=== PATIENT | male | born 1965 | race Caucasian/White ===

== ENCOUNTER 2023-06-16 21:41 | Inpatient (IN) ==
[2023-06-16 22:18] LABS: Hematocrit (blood only) 37.4 % (42.0-52.0); Hemoglobin 12.8 g/dl (14.0-18.0); Mean Corpuscular Hemoglobin 27.9 pg (25.0-34.0); Mean Corpuscular Hgb Conc 34.2 g/dL (32.0-36.0); Mean Corpuscular Volume 81.7 fL (80.0-100.0); Mean Platelet Volume 9.8 fL (9.4-12.4); Platelet Count 328 K/uL (130-400); RDW Coefficient of Variation 13.5 % (11.5-14.5); RDW Standard Deviation 39.8 fL (36.4-46.3); Red Blood Count 4.58 M/uL (4.70-6.10); White Blood Count 27.73 K/ul (4.8-10.8)
[2023-06-16 22:53] LABS: Albumin Globulin Ratio 0.7 (0.9-2); Albumin Level 2.9 gm/dl (3.4-5.0); BUN Creatinine Ratio 25.9 (10-20); Bilirubin,Total 0.6 mg/dl (0.2-1.0); Creatinine Clr Calc Pharmacy 72.1 ml/min; Est GFR (African American) 87.2 ml/min; Est GFR (Non-African American) 75.3 ml/min; Globulin 4.1 gm/dl (2.5-4.0); Potassium 4.8 mmol/L (3.5-5.1)
[2023-06-16 22:56] LABS: Basophils # (auto) 0.06 K/uL (0.00-0.20); Basophils % (auto) 0.2 %; Eosinophils % (auto) 0.4 %; Immature Granulocytes % (auto) 0.7 %; Lymphocytes # (auto) 1.03 K/uL (1.20-3.40); Lymphocytes % (auto) 3.7 %; Monocytes # (auto) 1.27 K/uL (0.11-0.59); Monocytes % (auto) 4.6 %; Neutrophils # (auto) 25.07 K/uL (1.40-6.50); Neutrophils % (auto) 90.4 %
[2023-06-16] MEDS: NovoLIN-R INSULIN PER UNIT CHARGE IV STA (23:31)
[2023-06-16] MEDS: cefTRIAXone SODIUM 2,000 MG/50 ML BAG IV STA (23:32)
[2023-06-16] MEDS: OPTIRAY 320 100ml IV ONE (23:38)
[2023-06-16 23:56] LABS: C Reactive Protein 35.45 mg/dl (0-0.5)
--- NOTE | 2023-06-17 01:27 | Emergency Department Note ---
History of Present Illness General Chief complaint: Infection, Wound Stated complaint: RT FOOT INFECTION/WOUND Time Seen by Provider: 06/16/23 23:00 History of Present Illness This 58-year-old male who is noncompliant with his diabetes medications presents to the ER he was initially seen at [place]. Patient was suppose to be admitted to [facility] but came here instead. Patient states his right foot is severely infected. He has osteomyelitis. Patient denies fever, chills, new trauma to the area. Patient states he has neuropathy and cannot really feel his feet. The right great toe is black and the leg is swollen up to the calf. There is extensive erythema. No history of DVT. He does not smoke. No other concerns per patient. Home Medications Medication Instructions Recorded Confirmed Type cholecalciferol (vitamin D3) 25 25 mcg PO DAILY 06/17/23 06/17/23 History mcg (1,000 unit) capsule (Vitamin D3) cyanocobalamin (vitamin B-12) 500 500 mcg PO DAILY 06/17/23 06/17/23 History mcg tablet (Vitamin B-12) [id number] 1 tab PO DAILY 06/17/23 06/17/23 History tablet (Multivitamin 50 Plus tablet) Allergies Allergy/AdvReac Type Severity Reaction Status Date / Time No Known Allergies Allergy Verified 06/17/23 00:56 Past Med/Surg History Social History Smoking Status: Never smoker Preferred Language: Haitian Feels Safe at Home: Yes Review of Systems A total of 10 systems reviewed and were otherwise negative Physical Exam Vital Signs Vital Signs - 24 hr 06/16/23 21:46 06/16/23 22:47 06/16/23 23:46 Temperature 37.7 C H Temperature Source Oral Pulse Rate 97 H 96 H Pulse Rate [Finger] 100 H Pulse Rate from SpO2 Sensor Pulse Rhythm [Finger] Respiratory Rate 18 18 Respiratory Effort / Characteristics Non-Labored Spontaneous Respiratory Depth Normal Normal Respiratory Pattern Regular Blood Pressure 165/76 H Blood Pressure [Right Arm] 160/86 H Blood Pressure Mean 105 Blood Pressure Mean [Right Arm] 110 Pulse Oximetry 99 96 Oxygen Delivery Method Room Air Room Air Sepsis Recent Fever Within 48 Hours No Sepsis New/Unexplained Change in Mental Status No Sepsis Action Taken by Nursing No Action Required 06/17/23 00:00 06/17/23 03:00 06/17/23 03:00 Temperature Temperature Source Pulse Rate 97 H 89 Pulse Rate [Finger] 88 Pulse Rate from SpO2 Sensor 97 H Pulse Rhythm [Finger] Regular Respiratory Rate 17 16 Respiratory Effort / Characteristics Non-Labored Spontaneous Respiratory Depth Normal Respiratory Pattern Regular Blood Pressure 160/86 H Blood Pressure [Right Arm] 140/83 Blood Pressure Mean 110 Blood Pressure Mean [Right Arm] 102 Pulse Oximetry 96 93 Oxygen Delivery Method Room Air Room Air Sepsis Recent Fever Within 48 Hours Sepsis New/Unexplained Change in Mental Status Sepsis Action Taken by Nursing VITALS: Vitals are noted on the nurse's note and reviewed by myself. Vital signs stable. GENERAL: White male with present, in no acute distress, nondiaphoretic, well-developed well-nourished. SKIN: Capillary reflex less than 2 seconds. HEENT: Normocephalic. PERRLA. EOMI. Nares patent. Mucous membranes moist. Neck is supple without nuchal rigidity. HEART: Regular rate and rhythm LUNGS: Clear to auscultation bilaterally without wheezes, rales or rhonchi. No retractions or accessory muscle use. ABDOMEN: Positive bowel sounds x 4. Normal tympanic percussion. Soft, nontender, without masses or organomegaly. Reyes sign negative. No guarding or rebound tenderness. no CVA tenderness MUSCULOSKELETAL: No gross musculoskeletal defects. Right foot great toe black malodorous draining with erythema and edema extending up to the calf concerning for osteomyelitis and infection. No crepitus. Wound culture taken and sent. Pedal pulses +2 equal present bilaterally. NEURO: Patient was alert and oriented to person place and time. No focal neurological deficits. Course Administered Medications Discontinued Medications Diphtheria/Pertussis/Tetanus Vacc (Diphther/Tetan/Pertus Vaccine (Tdap, Adol/Adult) 0.5ml) 0.5 ml IM .ONCE ONE Stop: 06/17/23 01:28 Last Admin: 06/17/23 03:19 Dose: 0.5 ml Documented By: ALESIA Ceftriaxone Sodium (Rocephin) 2,000 mg in 50 mls @ 100 mls/hr IV NOW STA Stop: 06/16/23 23:40 Last Infusion: 06/17/23 00:21 Dose: Infused Documented By: Admin: 06/16/23 23:32 Dose: 100 mls/hr Documented By: ALESIA Insulin Human Regular (Novolin-R Insulin Per Unit Charge) 10 units IV NOW STA Stop: 06/16/23 23:17 Last Admin: 06/16/23 23:31 Dose: 10 units Documented By: ALESIA Co-signed By: MERNA Ioversol (Optiray 320 100ml) 92 ml IV ONCE ONE Stop: 06/16/23 23:39 Last Admin: 06/16/23 23:38 Dose: 92 ml Documented By: KOREY Medical Decision Making Medical Records Attestation: I reviewed the patient's medical records. Home Medications Current Medication List: was personally reviewed by me Laboratory Data Attestation: I reviewed the patient's lab results. 06/16/23 22:03 06/16/23 22:03 Lab Results 06/16/23 06/17/23 Range/Units 22:03 01:30 WBC 27.73 H (4.8-10.8) K/ul RBC 4.58 L (4.70-6.10) M/uL Hgb 12.8 L (14.0-18.0) g/dl Hct 37.4 L (42.0-52.0) % MCV 81.7 (80.0-100.0) fL MCH 27.9 (25.0-34.0) pg MCHC 34.2 (32.0-36.0) g/dL RDW Std Deviation 39.8 (36.4-46.3) fL RDW Coeff of Dafne 13.5 (11.5-14.5) % Plt Count 328 (130-400) K/uL MPV 9.8 (9.4-12.4) fL Immature Gran % (Auto) 0.7 % Neut % (Auto) 90.4 % Lymph % (Auto) 3.7 % [place] % (Auto) 4.6 % Eos % (Auto) 0.4 % Baso % (Auto) 0.2 % Neut # (Auto) 25.07 H (1.40-6.50) K/uL Lymph # (Auto) 1.03 L (1.20-3.40) K/uL [place] # (Auto) 1.27 H (0.11-0.59) K/uL Eos # (Auto) 0.10 (0.00-0.50) K/uL Baso # (Auto) 0.06 (0.00-0.20) K/uL Immature Gran # (Auto) 0.20 (0.01-0.20) K/uL ESR 126 H (0-20) mm/hr Sodium 127 L (136-145) mmol/L Potassium 4.8 (3.5-5.1) mmol/L Chloride 94 L (98-107) mmol/L Carbon Dioxide 21 (21-32) mmol/L Anion Gap 12 H (3-11) BUN 28 H (6-23) mg/dl Creatinine 1.08 (0.6-1.4) mg/dl Est Cr Clr Drug Dosing 72.1 ml/min Est GFR ( Amer) 87.2 ml/min Est GFR (Non-Af Amer) 75.3 ml/min BUN/Creatinine Ratio 25.9 H (10-20) Glucose 381 H* (70-99(Fasting)) mg/dl POC Glucose 179 H (70-99) mg/dl Calcium 8.0 L (8.6-10.3) mg/dl Total Bilirubin 0.6 (0.2-1.0) mg/dl AST 32 (13-39) U/L ALT 23 (7-52) U/L Alkaline Phosphatase 139 H (34-104) U/L Total Creatine Kinase 38 (30-223) U/L C-Reactive Protein 35.45 H (0-0.5) mg/dl Total Protein 7.0 (6.0-8.3) gm/dl Albumin 2.9 L (3.4-5.0) gm/dl Globulin 4.1 H (2.5-4.0) gm/dl Albumin/Globulin Ratio 0.7 L (0.9-2) Imaging Data Attestation: I personally reviewed and interpreted this imaging study as follows: Radiologist's Impression: Foot CT 06/16/23 23:11 Exam(s): CT RIGHT FOOT With Contrast IV Amt: OPTIRAY 320 92ML EXAM: CT Right Lower Extremity With Intravenous Contrast, Foot CLINICAL HISTORY: Reason for exam: ? OM. TECHNIQUE: Axial computed tomography images of the right foot with intravenous contrast. CTDI is 24.91 mGy and DLP is 384.65 mGy-cm. Automated exposure control was utilized for the study. A dose lowering technique was utilized adhering to the principles of ALARA. CONTRAST: Patient received OPTIRAY 320 92ML of IV contrast COMPARISON: No relevant prior studies available. FINDINGS: Diffuse subcutaneous edema surrounding the ankle and foot. Cutaneous defect/ulceration and gas partially surrounding the distal aspect of the first digit clean the underlying the nail bed. Associated cortical destruction and erosion of the distal phalanx with intraosseous gas. Small amount of subcutaneous gas in the plantar aspect of the foot underlying the mid diaphysis of the first metatarsal without involvement of the first metatarsal. No other erosions or cortical destruction. No discrete enhancing soft tissue mass to suggest a phlegmon or abscess. No acute fracture or dislocation. No radiopaque foreign body. IMPRESSION: Diffuse subcutaneous edema and swelling compatible with cellulitis. Focal cutaneous erosions with underlying osseous destruction involving the distal phalanx of the first digit consistent with osteomyelitis. Small amount of gas in the subcutaneous fat overlying the mid first metatarsal without bony destruction. Electronically signed by: Pb Trent M.D. 06/17/23 01:51 AM MDM Narrative Prior records reviewed and summarized as above. Triage Nursing notes reviewed. Additional history obtained from family. The patient's history was concerning for swelling and redness of the skin. Differential diagnosis: Etiologies such as osteomyelitis, cellulitis, abscess, MRSA infection, DVT, necrotizing fasciitis, dermatitis, drug eruption, as well as others were entertained.. Physical examination: Exam and history seem consistent with osteomyelitis ER treatment provided: Patient received vancomycin just prior to arrival from [place]. Patient was given Rocephin here. IV fluids and insulin was given for hyperglycemia On reassessment the patient felt better. Diagnostics interpreted by me: The labs Independently Interpreted by myself revealed hyperglycemia, leukocytosis, elevated inflammatory markers Wound culture pending Blood cultures pending Imaging studies: Imaging as above Consultation: A consultation was placed with the hospitalist. The case was discussed and diagnostics were reviewed. The patient was evaluated in the ER for further treatment. This appears to be osteomyelitis of the right foot. Patient was started on broad-spectrum antibiotics. He received vancomycin just prior to arrival from [place]. He is given Rocephin here. Wound culture was taken and sent. Blood cultures are pending. Patient be admitted to the medical service. By the evaluation outlined above emergent etiologies such as abscess, necrotizing fasciitis, DVT, as well as others were deemed relatively unlikely. The pt informed about the findings as listed above. All questions were answered and pleased with the treatment. The chart was completed utilizing [employer] Speech voice recognition software. Grammatical errors, random word insertions, pronoun errors, and incomplete sentences are an occassional consequence of this system due to software limitations, ambient noise, and hardware issues. Any formal questions or concerns about the content, text, or information contained within the body of this dictation should be directly addressed to the physician corporate law assistant for clarification. Impression & Plan Acute osteomyelitis of right foot, Diabetes mellitus with hyperglycemia Discharge Plan Visit Data Chief Complaint: Infection, Wound Stated Complaint: RT FOOT INFECTION/WOUND ED Provider: Sudha Garzon ED Midlevel Provider: Josi Blake Discharge Problem: Acute osteomyelitis of right foot, Diabetes mellitus with hyperglycemia Patient Disposition: Admitted As Inpatient Condition: Fair Forms Stand Alone Forms: [facility] [employer] Prescriptions Prescriptions: No Action cyanocobalamin (vitamin B-12) [Vitamin B-12] 500 mcg Tablet 500 mcg PO DAILY cholecalciferol (vitamin D3) [Vitamin D3] 25 mcg (1,000 unit) Capsule 25 mcg PO DAILY Multivitamin 50 Plus Tablet 1 tab PO DAILY Referrals Referrals: PCP,NO [Primary Care Provider] -
--- NOTE | 2023-06-17 01:52 | CT Scan Report ---
Exam(s): CT RIGHT FOOT With Contrast IV Amt: OPTIRAY 320 92ML EXAM: CT Right Lower Extremity With Intravenous Contrast, Foot CLINICAL HISTORY: Reason for exam: ? OM. TECHNIQUE: Axial computed tomography images of the right foot with intravenous contrast. CTDI is 24.91 mGy and DLP is 384.65 mGy-cm. Automated exposure control was utilized for the study. A dose lowering technique was utilized adhering to the principles of ALARA. CONTRAST: Patient received OPTIRAY 320 92ML of IV contrast COMPARISON: No relevant prior studies available. FINDINGS: Diffuse subcutaneous edema surrounding the ankle and foot. Cutaneous defect/ulceration and gas partially surrounding the distal aspect of the first digit clean the underlying the nail bed. Associated cortical destruction and erosion of the distal phalanx with intraosseous gas. Small amount of subcutaneous gas in the plantar aspect of the foot underlying the mid diaphysis of the first metatarsal without involvement of the first metatarsal. No other erosions or cortical destruction. No discrete enhancing soft tissue mass to suggest a phlegmon or abscess. No acute fracture or dislocation. No radiopaque foreign body. IMPRESSION: Diffuse subcutaneous edema and swelling compatible with cellulitis. Focal cutaneous erosions with underlying osseous destruction involving the distal phalanx of the first digit consistent with osteomyelitis. Small amount of gas in the subcutaneous fat overlying the mid first metatarsal without bony destruction. Electronically signed by: Pb Trent M.D. 06/17/23 01:51 AM
[2023-06-17] MEDS: DIPHTHER/TETAN/PERTUS Vaccine (Tdap, Adol/Adult) 0.5mL IM ONE (03:19)
--- NOTE | 2023-06-17 03:58 | Ultrasound Report ---
Exam(s): US VENOUS RIGHT LOWER EXTREMITY EXAM: US Duplex Right Lower Extremity Veins CLINICAL HISTORY: Reason for exam: ? dvt. TECHNIQUE: Real-time duplex ultrasound scan of the right lower extremity veins integrating B-mode two-dimensional vascular structure, Doppler spectral analysis, color flow Doppler imaging and compression. COMPARISON: No relevant prior studies available. FINDINGS: Deep veins: Unremarkable. No DVT in the visualized common femoral, femoral, proximal deep femoral or popliteal veins. The veins demonstrate normal color flow, are normally compressible, with normal phasic flow and/or augmentation response. Superficial veins: Unremarkable. No thrombus in the visualized great saphenous vein. Soft tissues: Right calf edema. No popliteal cyst. Right groin lymph node 3.7 x 1.2 x 4.5 cm. Right popliteal fossa lymph node 1.1 x 0.7 x 1. 3 cm. IMPRESSION: No evidence of deep venous thrombosis. Right groin and popliteal lymph nodes. Electronically signed by: Pb Trent M.D. 06/17/23 03:57 AM
--- NOTE | 2023-06-17 04:06 | History & Physical Report ---
Date of Service June 17, 2023 Assessment & Plan (1) Acute osteomyelitis of right foot: Plan: 58-year-old male with past med history significant for diabetes used to be on metformin but stopped taking it 2 years ago and not seen a doctor for some time went to [place] ER because of infection going on the right big toe for last 2 months. Says it initially started as a blister and he used [id number] antibiotic creams but is not getting better so went to the [place] ER and was there for 24 hours. Looks like he was given IV antibiotics and there was a plan to transfer him to [facility] but he came here. Says he has neuropathy in legs and does not feel any pain. Is ambulating okay. Denies any fevers. Denies any headache. No dizziness. No runny nose or sore throat. Vision is okay. No cough. States appetite is okay. No chest pain or shortness of breath. No nausea. No abdominal pain. Normal bowel and bladder movements. Denies blood in the stools. Hemodynamically stable. Acute osteomyelitis of the right big toe Blackish discoloration of right big toe Empiric IV Dapto and Zosyn Keep n.p.o. IV fluids Ortho consult Diabetes Currently not taking medications Will place him on sliding scale Follow HbA1c levels Hyponatremia Sodium 127 Some component of pseudohyponatremia from hyperglycemia Will follow repeat labs DVT prophylaxis SCDs for now Disposition Medical floor Full code History of Present Illness Chief Complaint: Right big toe infection and osteomyelitis Primary Care Provider: NO PCP 58-year-old male with past med history significant for diabetes used to be on metformin but stopped taking it 2 years ago and not seen a doctor for some time went to [place] ER because of infection going on the right big toe for last 2 months. Says it initially started as a blister and he used [id number] antibiotic creams but is not getting better so went to the [place] ER and was there for 24 hours. Looks like he was given IV antibiotics and there was a plan to transfer him to [facility] but he came here. Says he has neuropathy in legs and does not feel any pain. Is ambulating okay. Denies any fevers. Denies any headache. No dizziness. No runny nose or sore throat. Vision is okay. No cough. States appetite is okay. No chest pain or shortness of breath. No nausea. No abdominal pain. Normal bowel and bladder movements. Denies blood in the stools. Hemodynamically stable. Past medical history. As mentioned above Past surgical history. Surgery for a bursitis in his right elbow. Social history. Denies smoking. Alcohol social drinking. No drug use. Family history. Father had diabetes and heart disease. Mother had diabetes. Allergies Allergy/AdvReac Type Severity Reaction Status Date / Time No Known Allergies Allergy Verified 06/17/23 00:56 Home Medications Medication Instructions Recorded Confirmed Type cholecalciferol (vitamin D3) 25 25 mcg PO DAILY 06/17/23 06/17/23 History mcg (1,000 unit) capsule (Vitamin D3) cyanocobalamin (vitamin B-12) 500 500 mcg PO DAILY 06/17/23 06/17/23 History mcg tablet (Vitamin B-12) [id number]-[id number]-[id number] 1 tab PO DAILY 06/17/23 06/17/23 History tablet (Multivitamin 50 Plus tablet) Past Med/Surg History Social History Smoking Status: Never smoker Hx Alcohol Use: Yes Hx Substance Use: No Preferred Language: Indonesian Communication Ability: Effective Stunner Animal Required: No Beliefs That Will Affect Care: None Current Living Situation: Spouse Current Living Situation Comment: home with Other Information That Helps Us Care for You: No Feels Safe at Home: Yes Safety Concerns: Feels Safe At This Time Assistive Devices: Denture - Upper and Glasses Review of Systems Review of Systems: All systems reviewed & are unremarkable except as noted in HPI & below Physical Exam Physical Exam: General- Not in distress Head- atraumatic Eyes- PERRL,. ENT- oropharynx clear Neck- supple, no JVD. Lungs- clear to auscultation no wheezing or crackles. Heart- regular rhythm; no murmur, no gallop. Abdomen- normal bowel sounds, soft, nontender, no distension. Extremities- no pretibial edema, Right big toe blackish discoloration Neuro- alert, oriented PERRL, no facial palsy; no dysarthria; moves extremities Results & Data Results & Data Vital Signs (Past 12 Hours) Vital Signs Temp Pulse Pulse Resp BP BP Pulse Ox 06/17/23 03:00 88 16 140/83 93 06/17/23 03:00 89 06/17/23 00:00 97 H 17 160/86 H 96 06/16/23 23:46 100 H 18 160/86 H 96 06/16/23 22:47 96 H 06/16/23 21:46 37.7 C H 97 H 18 165/76 H 99 O2 Del Method 06/17/23 03:00 Room Air 06/17/23 03:00 06/17/23 00:00 Room Air 06/16/23 23:46 Room Air 06/16/23 22:47 06/16/23 21:46 Room Air Diagnostic Findings Laboratory Results WBC 27.73 K/ul (4.8-10.8) H 06/16/23 22:03 RBC 4.58 M/uL (4.70-6.10) L 06/16/23 22:03 Hgb 12.8 g/dl (14.0-18.0) L 06/16/23 22:03 Hct 37.4 % (42.0-52.0) L 06/16/23 22:03 MCV 81.7 fL (80.0-100.0) 06/16/23 22:03 MCH 27.9 pg (25.0-34.0) 06/16/23 22:03 MCHC 34.2 g/dL (32.0-36.0) 06/16/23 22:03 RDW Std Deviation 39.8 fL (36.4-46.3) 06/16/23 22:03 RDW Coeff of Dafne 13.5 % (11.5-14.5) 06/16/23 22:03 Plt Count 328 K/uL (130-400) 06/16/23 22:03 MPV 9.8 fL (9.4-12.4) 06/16/23 22:03 Immature Gran % (Auto) 0.7 % 06/16/23 22:03 Neut % (Auto) 90.4 % 06/16/23 22:03 Lymph % (Auto) 3.7 % 06/16/23 22:03 [place] % (Auto) 4.6 % 06/16/23 22:03 Eos % (Auto) 0.4 % 06/16/23 22:03 Baso % (Auto) 0.2 % 06/16/23 22:03 Neut # (Auto) 25.07 K/uL (1.40-6.50) H 06/16/23 22:03 Lymph # (Auto) 1.03 K/uL (1.20-3.40) L 06/16/23 22:03 [place] # (Auto) 1.27 K/uL (0.11-0.59) H 06/16/23 22:03 Eos # (Auto) 0.10 K/uL (0.00-0.50) 06/16/23 22:03 Baso # (Auto) 0.06 K/uL (0.00-0.20) 06/16/23 22:03 Immature Gran # (Auto) 0.20 K/uL (0.01-0.20) 06/16/23 22:03 ESR 126 mm/hr (0-20) H 06/16/23 22:03 Sodium 127 mmol/L (136-145) L 06/16/23 22:03 Potassium 4.8 mmol/L (3.5-5.1) 06/16/23 22:03 Chloride 94 mmol/L (98-107) L 06/16/23 22:03 Carbon Dioxide 21 mmol/L (21-32) 06/16/23 22:03 Anion Gap 12 (3-11) H 06/16/23 22:03 BUN 28 mg/dl (6-23) H 06/16/23 22:03 Creatinine 1.08 mg/dl (0.6-1.4) 06/16/23 22:03 Est Cr Clr Drug Dosing 72.1 ml/min 06/16/23 22:03 Est GFR ( Amer) 87.2 ml/min 06/16/23 22:03 Est GFR (Non-Af Amer) 75.3 ml/min 06/16/23 22:03 BUN/Creatinine Ratio 25.9 (10-20) H 06/16/23 22:03 Glucose 381 mg/dl (70-99(Fasting)) H* 06/16/23 22:03 POC Glucose 179 mg/dl (70-99) H 06/17/23 01:30 Calcium 8.0 mg/dl (8.6-10.3) L 06/16/23 22:03 Total Bilirubin 0.6 mg/dl (0.2-1.0) 06/16/23 22:03 AST 32 U/L (13-39) 06/16/23 22:03 ALT 23 U/L (7-52) 06/16/23 22:03 Alkaline Phosphatase 139 U/L (34-104) H 06/16/23 22:03 Total Creatine Kinase 38 U/L (30-223) 06/16/23 22:03 C-Reactive Protein 35.45 mg/dl (0-0.5) H 06/16/23 22:03 Total Protein 7.0 gm/dl (6.0-8.3) 06/16/23 22:03 Albumin 2.9 gm/dl (3.4-5.0) L 06/16/23 22:03 Globulin 4.1 gm/dl (2.5-4.0) H 06/16/23 22:03 Albumin/Globulin Ratio 0.7 (0.9-2) L 06/16/23 22:[address] 06/16/23 23:11 Exam(s): CT RIGHT FOOT With Contrast IV Amt: OPTIRAY 320 92ML EXAM: CT Right Lower Extremity With Intravenous Contrast, Foot CLINICAL HISTORY: Reason for exam: ? OM. TECHNIQUE: Axial computed tomography images of the right foot with intravenous contrast. CTDI is 24.91 mGy and DLP is 384.65 mGy-cm. Automated exposure control was utilized for the study. A dose lowering technique was utilized adhering to the principles of ALARA. CONTRAST: Patient received OPTIRAY 320 92ML of IV contrast COMPARISON: No relevant prior studies available. FINDINGS: Diffuse subcutaneous edema surrounding the ankle and foot. Cutaneous defect/ulceration and gas partially surrounding the distal aspect of the first digit clean the underlying the nail bed. Associated cortical destruction and erosion of the distal phalanx with intraosseous gas. Small amount of subcutaneous gas in the plantar aspect of the foot underlying the mid diaphysis of the first metatarsal without involvement of the first metatarsal. No other erosions or cortical destruction. No discrete enhancing soft tissue mass to suggest a phlegmon or abscess. No acute fracture or dislocation. No radiopaque foreign body. IMPRESSION: Diffuse subcutaneous edema and swelling compatible with cellulitis. Focal cutaneous erosions with underlying osseous destruction involving the distal phalanx of the first digit consistent with osteomyelitis. Small amount of gas in the subcutaneous fat overlying the mid first metatarsal without bony destruction. Electronically signed by: Pb Trent M.D. 06/17/23 01:51 AM Venous Doppler Study 06/17/23 00:00 Exam(s): US VENOUS RIGHT LOWER EXTREMITY EXAM: US Duplex Right Lower Extremity Veins CLINICAL HISTORY: Reason for exam: ? dvt. TECHNIQUE: Real-time duplex ultrasound scan of the right lower extremity veins integrating B-mode two-dimensional vascular structure, Doppler spectral analysis, color flow Doppler imaging and compression. COMPARISON: No relevant prior studies available. FINDINGS: Deep veins: Unremarkable. No DVT in the visualized common femoral, femoral, proximal deep femoral or popliteal veins. The veins demonstrate normal color flow, are normally compressible, with normal phasic flow and/or augmentation response. Superficial veins: Unremarkable. No thrombus in the visualized great saphenous vein. Soft tissues: Right calf edema. No popliteal cyst. Right groin lymph node 3.7 x 1.2 x 4.5 cm. Right popliteal fossa lymph node 1.1 x 0.7 x 1. 3 cm. IMPRESSION: No evidence of deep venous thrombosis. Right groin and popliteal lymph nodes. Electronically signed by: Pb Trent M.D. 06/17/23 03:57 AM Code Status & VTE Plan VTE Prophylaxis Plan VTE Prophylaxis will be ordered: Yes
[2023-06-17] MEDS ORDERED: CARBOHYDRATES FOR HYPOGLYCEMIA PO PRN (05:23)
[2023-06-17] MEDS ORDERED: GLUCOSE 40% GEL 15 GM TUBE PO PRN (05:23)
[2023-06-17] MEDS ORDERED: DEXTROSE 50% 50 ML SYRINGE IV PRN (05:23)
[2023-06-17] MEDS ORDERED: POLYETHYLENE (MIRALAX) 17 GM PACK PO PRN (05:23)
[2023-06-17] MEDS ORDERED: GLUCOSE 10 TAB/TUBE PO PRN (05:23)
[2023-06-17] MEDS ORDERED: GLUCAGON FOR INJ 1 MG VIAL SQ PRN (05:23)
[2023-06-17] MEDS: SODIUM CHLORIDE 0.9% 1,000 ML IV SCH (05:56)
[2023-06-17] MEDS: DAPTOmycin 275 MG in SYRINGE 0 ML IV SCH (06:02)
[2023-06-17] MEDS: PIPER/TAZO 4.5g in D5W MINI-B 100 ML IV ONE (06:15)
[2023-06-17] MEDS: INSULIN ASPART PER UNIT CHARGE SC SCH ×2 (06:15→12:14)
[2023-06-17] MEDS: ZOLPIDEM TARTRATE 5 MG TAB PO STA (06:17)
[2023-06-17 07:22] LABS: Hematocrit (blood only) 33.6 % (42.0-52.0); Hemoglobin 11.3 g/dl (14.0-18.0); Mean Corpuscular Hemoglobin 27.8 pg (25.0-34.0); Mean Corpuscular Hgb Conc 33.6 g/dL (32.0-36.0); Mean Corpuscular Volume 82.8 fL (80.0-100.0); Mean Platelet Volume 9.4 fL (9.4-12.4); Platelet Count 309 K/uL (130-400); RDW Coefficient of Variation 13.2 % (11.5-14.5); RDW Standard Deviation 40.4 fL (36.4-46.3); Red Blood Count 4.06 M/uL (4.70-6.10); White Blood Count 26.28 K/ul (4.8-10.8)
[2023-06-17 07:39] LABS: BUN Creatinine Ratio 25.2 (10-20); Calcium 7.5 mg/dl (8.6-10.3); Creatinine Clr Calc Pharmacy 74.7 ml/min; Est GFR (African American) 91.7 ml/min; Est GFR (Non-African American) 79.1 ml/min; Magnesium 1.9 mg/dl (1.7-2.4); Potassium 4.3 mmol/L (3.5-5.1)
[2023-06-17 07:50] LABS: Basophils # (auto) 0.03 K/uL (0.00-0.20); Basophils % (auto) 0.1 %; Dohle Bodies 1+; Eosinophils # (auto) 0.09 K/uL (0.00-0.50); Eosinophils % (auto) 0.3 %; Immature Granulocytes # (auto) 0.21 K/uL (0.01-0.20); Immature Granulocytes % (auto) 0.8 %; Lymphocytes % (auto) 2.7 %; Monocytes % (auto) 5.3 %; Neutrophils # (auto) 23.85 K/uL (1.40-6.50); Neutrophils % (auto) 90.8 %
[2023-06-17 07:56] LABS: Estimated Average Glucose 358 mg/dl; Hemoglobin A1C 14.1 % (4.5-5.6)
[2023-06-17] MEDS: CEROVITE ADV FORMULA TAB PO SCH (08:01)
[2023-06-17] MEDS: CHOLECALCIFEROL 25 MCG (1000 UNITS) TAB PO SCH (08:01)
[2023-06-17] MEDS: CYANOCOBALAMIN (B-12) 500 MCG TABLET PO SCH (08:01)
--- NOTE | 2023-06-17 09:24 | Orthopedic Consultation ---
Date of Consultation June 17, 2023 Assessment & Plan (1) Acute osteomyelitis of right foot: Plan Pt seen in conjunction with Dr Marquis. Due to extend of infection patient will require right below knee amputation. This was thoroughly discussed with the patient including his surgical options and risk and benefits and patient is agreeable to proceed with RT BKA with Dr Marquis tomorrow. This will be added on tomorrow. Written consent was obtained and placed in patient chart. X-rays were ordered. Pt can eat today, NPO tonight at midnight. Hold any anticoagulants. Continue SCDs. Continue antibiotics per primary. Pt will need IV ancef preop in OR. Orders for ancef preop, NPO at midnight, 1 gram TXA preop and type and screen were placed. History of Present Illness Reason for Consultation: Right great toe infection Attending Physician: Erik Calloway MD History of Present Illness Jerry is a 58-year-old male type II diabetic, uncontrolled who presented to [facility] yesterday for concerns of right great toe infection. He was seen in [facility] and they were concerned about osteomyelitis of his right great toe. He was supposed to be transferred to [place] but came to [facility]. He says that this has been ongoing since November. Started out as a blister and he was using [id number] antibiotic creams. He says that it really started to get bad with black discoloration over the past 2 months. He did not seek any treatment prior to going to [facility]. He was started on IV Dapto and Zosyn at [facility]. He says that he does not have any pain and was ambulating with no issues. He used to be on metformin for his diabetes but stopped taking it 2 years ago. He denies any other medical issues that he knows about. No known allergies. He is not on any blood thinners. He last ate yesterday evening and has been NPO. Denies any tobacco use. No h/o MRSA. Allergies Allergy/AdvReac Type Severity Reaction Status Date / Time No Known Allergies Allergy Verified 06/17/23 00:56 Home Medications Medication Instructions Recorded Confirmed Type cholecalciferol (vitamin D3) 25 25 mcg PO DAILY 06/17/23 06/17/23 History mcg (1,000 unit) capsule (Vitamin D3) cyanocobalamin (vitamin B-12) 500 500 mcg PO DAILY 06/17/23 06/17/23 History mcg tablet (Vitamin B-12) [id number] 1 tab PO DAILY 06/17/23 06/17/23 History tablet (Multivitamin 50 Plus tablet) Patient History Social History Smoking Status: Never smoker Hx Alcohol Use: Yes Hx Substance Use: No Preferred Language: Samoan Communication Ability: Effective Bacteriologist Medical Required: No Beliefs That Will Affect Care: None Current Living Situation: Spouse Current Living Situation Comment: home with Other Information That Helps Us Care for You: No Feels Safe at Home: Yes Safety Concerns: Feels Safe At This Time Assistive Devices: Denture - Upper and Glasses Review of Systems Review of Systems: Denies fevers, chills. Endorses fatigue. Physical Exam Physical Exam: Patient was seen and examined bedside. He is lying comfortably in his bed. No acute distress, calm and cooperative during exam. He is afebrile. His right foot is edematous. There is erythema cellulitis. His right great toe is blackened discoloration. He is able to feel sensation in his remaining foot and toes. He does have a 2+ dorsal pedal pulse present. He is able to freely move all of his toes and ankle. He has no pain. He has a plantar wound distal to his right toe MTP that extends beyond his mid foot with surrounding erythema. Results & Data Vital Signs (Past 12 Hours) Vital Signs Temp Pulse Pulse Resp BP BP Pulse Ox 06/17/23 07:11 36.9 C 87 18 127/72 96 06/17/23 05:16 36.8 C 91 H 18 159/84 H 98 06/17/23 03:00 88 16 140/83 93 06/17/23 03:00 89 06/17/23 00:00 97 H 17 160/86 H 96 06/16/23 23:46 100 H 18 160/86 H 96 06/16/23 22:47 96 H 06/16/23 21:46 37.7 C H 97 H 18 165/76 H 99 O2 Del Method 06/17/23 07:11 Room Air 06/17/23 05:16 Room Air 06/17/23 03:00 Room Air 06/17/23 03:00 06/17/23 00:00 Room Air 06/16/23 23:46 Room Air 06/16/23 22:47 06/16/23 21:46 Room Air Laboratory Results 06/17/23 06/17/23 06/17/23 Range/Units 07:01 05:41 01:30 WBC 26.28 H (4.8-10.8) K/ul RBC 4.06 L (4.70-6.10) M/uL Hgb 11.3 L (14.0-18.0) g/dl Hct 33.6 L (42.0-52.0) % MCV 82.8 (80.0-100.0) fL MCH 27.8 (25.0-34.0) pg MCHC 33.6 (32.0-36.0) g/dL RDW Std Deviation 40.4 (36.4-46.3) fL RDW Coeff of Dafne 13.2 (11.5-14.5) % Plt Count 309 (130-400) K/uL MPV 9.4 (9.4-12.4) fL Immature Gran % (Auto) 0.8 % Neut % (Auto) 90.8 % Lymph % (Auto) 2.7 % [place] % (Auto) 5.3 % Eos % (Auto) 0.3 % Baso % (Auto) 0.1 % Neut # (Auto) 23.85 H (1.40-6.50) K/uL Lymph # (Auto) 0.70 L (1.20-3.40) K/uL [place] # (Auto) 1.40 H (0.11-0.59) K/uL Eos # (Auto) 0.09 (0.00-0.50) K/uL Baso # (Auto) 0.03 (0.00-0.20) K/uL Immature Gran # (Auto) 0.21 H (0.01-0.20) K/uL Dohle Bodies 1+ ESR (0-20) mm/hr Sodium 130 L (136-145) mmol/L Potassium 4.3 (3.5-5.1) mmol/L Chloride 98 (98-107) mmol/L Carbon Dioxide 24 (21-32) mmol/L Anion Gap 8 (3-11) BUN 26 H (6-23) mg/dl Creatinine 1.03 (0.6-1.4) mg/dl Est Cr Clr Drug Dosing 74.7 ml/min Est GFR ( Amer) 91.7 ml/min Est GFR (Non-Af Amer) 79.1 ml/min BUN/Creatinine Ratio 25.2 H (10-20) Glucose 256 H (70-99(Fasting)) mg/dl POC Glucose 249 H 179 H (70-99) mg/dl Estimat Average Glucose 358 mg/dl Hemoglobin A1c 14.1 H (4.5-5.6) % Calcium 7.5 L (8.6-10.3) mg/dl Magnesium 1.9 (1.7-2.4) mg/dl Total Bilirubin (0.2-1.0) mg/dl AST (13-39) U/L ALT (7-52) U/L Alkaline Phosphatase (34-104) U/L Total Creatine Kinase (30-223) U/L C-Reactive Protein (0-0.5) mg/dl Total Protein (6.0-8.3) gm/dl Albumin (3.4-5.0) gm/dl Globulin (2.5-4.0) gm/dl Albumin/Globulin Ratio (0.9-2) 06/15/ Range/Units 22:03 WBC 27.73 H (4.8-10.8) K/ul RBC 4.58 L (4.70-6.10) M/uL Hgb 12.8 L (14.0-18.0) g/dl Hct 37.4 L (42.0-52.0) % MCV 81.7 (80.0-100.0) fL MCH 27.9 (25.0-34.0) pg MCHC 34.2 (32.0-36.0) g/dL RDW Std Deviation 39.8 (36.4-46.3) fL RDW Coeff of Dafne 13.5 (11.5-14.5) % Plt Count 328 (130-400) K/uL MPV 9.8 (9.4-12.4) fL Immature Gran % (Auto) 0.7 % Neut % (Auto) 90.4 % Lymph % (Auto) 3.7 % [place] % (Auto) 4.6 % Eos % (Auto) 0.4 % Baso % (Auto) 0.2 % Neut # (Auto) 25.07 H (1.40-6.50) K/uL Lymph # (Auto) 1.03 L (1.20-3.40) K/uL [place] # (Auto) 1.27 H (0.11-0.59) K/uL Eos # (Auto) 0.10 (0.00-0.50) K/uL Baso # (Auto) 0.06 (0.00-0.20) K/uL Immature Gran # (Auto) 0.20 (0.01-0.20) K/uL Dohle Bodies ESR 126 H (0-20) mm/hr Sodium 127 L (136-145) mmol/L Potassium 4.8 (3.5-5.1) mmol/L Chloride 94 L (98-107) mmol/L Carbon Dioxide 21 (21-32) mmol/L Anion Gap 12 H (3-11) BUN 28 H (6-23) mg/dl Creatinine 1.08 (0.6-1.4) mg/dl Est Cr Clr Drug Dosing 72.1 ml/min Est GFR ( Amer) 87.2 ml/min Est GFR (Non-Af Amer) 75.3 ml/min BUN/Creatinine Ratio 25.9 H (10-20) Glucose 381 H* (70-99(Fasting)) mg/dl POC Glucose (70-99) mg/dl Estimat Average Glucose mg/dl Hemoglobin A1c (4.5-5.6) % Calcium 8.0 L (8.6-10.3) mg/dl Magnesium (1.7-2.4) mg/dl Total Bilirubin 0.6 (0.2-1.0) mg/dl AST 32 (13-39) U/L ALT 23 (7-52) U/L Alkaline Phosphatase 139 H (34-104) U/L Total Creatine Kinase 38 (30-223) U/L C-Reactive Protein 35.45 H (0-0.5) mg/dl Total Protein 7.0 (6.0-8.3) gm/dl Albumin 2.9 L (3.4-5.0) gm/dl Globulin 4.1 H (2.5-4.0) gm/dl Albumin/Globulin Ratio 0.7 L (0.9-2) Diagnostic Findings Foot CT 06/16/23 23:11 Exam(s): CT RIGHT FOOT With Contrast IV Amt: OPTIRAY 320 92ML EXAM: CT Right Lower Extremity With Intravenous Contrast, Foot CLINICAL HISTORY: Reason for exam: ? OM. TECHNIQUE: Axial computed tomography images of the right foot with intravenous contrast. CTDI is 24.91 mGy and DLP is 384.65 mGy-cm. Automated exposure control was utilized for the study. A dose lowering technique was utilized adhering to the principles of ALARA. CONTRAST: Patient received OPTIRAY 320 92ML of IV contrast COMPARISON: No relevant prior studies available. FINDINGS: Diffuse subcutaneous edema surrounding the ankle and foot. Cutaneous defect/ulceration and gas partially surrounding the distal aspect of the first digit clean the underlying the nail bed. Associated cortical destruction and erosion of the distal phalanx with intraosseous gas. Small amount of subcutaneous gas in the plantar aspect of the foot underlying the mid diaphysis of the first metatarsal without involvement of the first metatarsal. No other erosions or cortical destruction. No discrete enhancing soft tissue mass to suggest a phlegmon or abscess. No acute fracture or dislocation. No radiopaque foreign body. IMPRESSION: Diffuse subcutaneous edema and swelling compatible with cellulitis. Focal cutaneous erosions with underlying osseous destruction involving the distal phalanx of the first digit consistent with osteomyelitis. Small amount of gas in the subcutaneous fat overlying the mid first metatarsal without bony destruction. Electronically signed by: Pb Trent M.D. 06/17/23 01:51 AM Venous Doppler Study 06/17/23 00:00 Exam(s): US VENOUS RIGHT LOWER EXTREMITY EXAM: US Duplex Right Lower Extremity Veins CLINICAL HISTORY: Reason for exam: ? dvt. TECHNIQUE: Real-time duplex ultrasound scan of the right lower extremity veins integrating B-mode two-dimensional vascular structure, Doppler spectral analysis, color flow Doppler imaging and compression. COMPARISON: No relevant prior studies available. FINDINGS: Deep veins: Unremarkable. No DVT in the visualized common femoral, femoral, proximal deep femoral or popliteal veins. The veins demonstrate normal color flow, are normally compressible, with normal phasic flow and/or augmentation response. Superficial veins: Unremarkable. No thrombus in the visualized great saphenous vein. Soft tissues: Right calf edema. No popliteal cyst. Right groin lymph node 3.7 x 1.2 x 4.5 cm. Right popliteal fossa lymph node 1.1 x 0.7 x 1. 3 cm. IMPRESSION: No evidence of deep venous thrombosis. Right groin and popliteal lymph nodes. Electronically signed by: Pb Trent M.D. 06/17/23 03:57 AM
[2023-06-17] MEDS ORDERED: Nursing to Pharmacy Communication SCH (10:00)
--- NOTE | 2023-06-17 11:30 | XRay Report ---
XR foot RT min 3V routine HISTORY: 58 years-old Male infection acute right foot pain with reported soft tissue infection COMPARISON: CT 06/16/2023 TECHNIQUE: 3 views of the right foot FINDINGS: Mild diffuse soft tissue swelling. Type II accessory navicular. Multifocal osteoarthritis, mostly mil d to moderate however severe within the second metatarsal phalangeal joint. Subcutaneous and deep tis dora edema of the first digit with first distal phalangeal osteonecrosis/osteomyelitis redemonstrated. No acute fracture or dislocation. IMPRESSION: Osteomyelitis/osteonecrosis of the first distal phalanx redemonstrated with first digit/volar forefoo t soft tissue gas which may be secondary to direct communication with an open wound versus gas gangre ne/necrotizing fasciitis. ACT 112: Negative or not required by law. The above report was generated using voice recognition software. It may contain grammatical, syntax o r spelling errors. Electronically signed by: Ranjeet Epperson M.D. 06/17/2023 11:28 AM
[2023-06-17] MEDS: PIPERACILLIN/TAZOBACTAM 4.5 GM in DEXTROSE 5% MINI-B 100 ML IV SCH (11:42)
--- NOTE | 2023-06-17 14:23 | Hospitalist Progress Note ---
Date of Service June 17, 2023 Assessment & Plan (1) Acute osteomyelitis of right foot: (2) Diabetes mellitus with hyperglycemia: Plan 58-year-old male with past med history significant for diabetes used to be on metformin but stopped taking it 2 years ago and not seen a doctor for some time went to [facility] because of infection going on the right big toe for last 2 months. He was initially in the [facility] ED; was being planned to transfer to [facility] Patient decided to come to [facility] for further evaluation Acute osteomyelitis of the right big toe Dry gangrene Diabetic foot wound Blood culture positive gram-positive cocci in chains Patient presented with worsening infection of right great toe for the last 2 months Blood culture in [facility] ED positive for gram-positive cocci in [facility] Foot CT shows diffuse subcutaneous edema and swelling compatible cellulitis, osseous destruction involving the distal phalanx of first digit. Leukocytosis present ESR and CRP significantly elevated Patient planned for below-knee amputation. Continue with Zosyn and daptomycin; repeat blood culture is pending. Will follow-up on final culture and sensitivity of blood culture from OSH Will obtain echocardiogram given gram-positive bacteremia Obtain EKG Type II diabetes Currently not taking medications Will place him on sliding scale HbA1c of 14.1% Discussed about restarting insulin at discharge; patient is agreeable. Will need follow-up with PCP to manage diabetes Hyponatremia Sodium 127 on admission; improved to 130 Continue IV fluids BMP daily DVT prophylaxis SCDs for now Disposition Medical floor Full code Please note the above document was generated using voice recognition software. It may contain grammatical, syntax or spelling errors. Any formal questions or concerns about the content, text or information contained within the body of this dictation should be directly addressed to the provider for clarification Admission and Anticipated Discharge Date Admission Date: June 17, 2023 Subjective Patient seen and examined at bedside. He is lying on the bed comfortably. Not in distress. He discussed with orthopedics regarding surgery tomorrow. He is agreeable to it. Reports generalized fatigue and tiredness. Review of Systems Review of Systems: All systems reviewed & are unremarkable except as noted in Subjective Physical Exam Physical Exam: Constitutional: WD/WN, vitals as above, NAD, sitting up in bed, pleasant, conversing easily Respiratory: normal respiratory effort, lungs clear to auscultation, no wheeze, rales, rhonchi. Normal insp/exp effort, no accessory muscle use Cardiovascular: RRR, no murmur, no edema Vessels: no JVD or carotid bruit Chest: normal inspection of chest Abdomen: normal bowel sounds, soft, nontender, no hepatosplenomegaly Musculoskeletal: Right foot; great toe is necrotic with dry gangrene with large area extending from the base of the MTP joint. Wound in the plantar midfoot as well. No purulent discharge. Skin: no rashes, warm and dry normal turgor Neurologic: PERRL, EOMI, accommodation nl, no face palsy, no dysarthria CN's II- XI intact bilaterally and moves all extremities Psychiatric: A+Ox3, euthymic affect Results & Data Results & Data Vital Signs (Past 12 Hours) Vital Signs Temp Pulse Pulse Resp BP Pulse Ox O2 Del Method 06/17/23 07:11 36.9 C 87 18 127/72 96 Room Air 06/17/23 05:16 36.8 C 91 H 18 159/84 H 98 Room Air 06/17/23 03:00 88 16 140/83 93 Room Air 06/17/23 03:00 89
[2023-06-17] MEDS: PROMETHAZINE HCL 12.5 MG in SODIUM CHLORIDE 0.9% 50 ML IV STA (14:50)
[2023-06-18] MEDS: ZOLPIDEM TARTRATE 5 MG TAB PO PRN (01:34)
[2023-06-18] MEDS ORDERED: ceFAZolin 2000MG 2,000 MG/15 ML SYR IV ONE (06:00)
[2023-06-18] MEDS: INSULIN ASPART PER UNIT CHARGE SC SCH ×2 (06:05→20:35)
[2023-06-18 07:27] LABS: Basophils # (auto) 0.04 K/uL (0.00-0.20); Basophils % (auto) 0.2 %; Eosinophils # (auto) 0.36 K/uL (0.00-0.50); Eosinophils % (auto) 1.8 %; Immature Granulocytes # (auto) 0.21 K/uL (0.01-0.20); Immature Granulocytes % (auto) 1.1 %; Lymphocytes # (auto) 0.94 K/uL (1.20-3.40); Lymphocytes % (auto) 4.8 %; Mean Corpuscular Hemoglobin 27.9 pg (25.0-34.0); Mean Corpuscular Hgb Conc 33.3 g/dL (32.0-36.0); Mean Corpuscular Volume 83.8 fL (80.0-100.0); Mean Platelet Volume 9.7 fL (9.4-12.4); Monocytes # (auto) 1.23 K/uL (0.11-0.59); Monocytes % (auto) 6.2 %; Neutrophils # (auto) 16.94 K/uL (1.40-6.50); Neutrophils % (auto) 85.9 %; Platelet Count 316 K/uL (130-400); RDW Coefficient of Variation 13.5 % (11.5-14.5); RDW Standard Deviation 41.9 fL (36.4-46.3); Red Blood Count 3.94 M/uL (4.70-6.10); White Blood Count 19.72 K/ul (4.8-10.8)
[2023-06-18 07:43] LABS: BUN Creatinine Ratio 24.5 (10-20); Calcium 7.3 mg/dl (8.6-10.3); Creatinine Clr Calc Pharmacy 72.6 ml/min; Est GFR (African American) 88.6 ml/min; Est GFR (Non-African American) 76.4 ml/min; Potassium 4.1 mmol/L (3.5-5.1)
--- NOTE | 2023-06-18 10:03 | Orthopedic Progress Note ---
Date of Service June 18, 2023 Assessment & Plan (1) Acute osteomyelitis of right foot: Plan Due to extend of infection patient will require right below knee amputation. This was thoroughly discussed with the patient 06/16 including his surgical options and risk and benefits and patient is agreeable to proceed with RT BKA with Dr Marquis. This will be done later today. Written consent was obtained 06/16 and placed in patient chart. X-rays were ordered and showed osteomyelitis in great toe/ forefoot with gas. Type and screen was done yesterday. Pt has been NPO. Hold any anticoagulants. Continue SCDs. Continue antibiotics and fluids per primary. Orders for ancef and TXA placed. Pt has no further questions or concerns this morning. Plan to proceed with surgrey today as planned. Admission and Anticipated Discharge Date Admission Date: June 17, 2023 Subjective Pt says he is doing well. He is waiting for surgery later today. Has no issues, questions or concerns at this time Review of Systems Review of Systems: Denies fevers, chills. Endorses fatigue. Physical Exam Physical Exam: Patient was seen bedside. He is lying comfortably in his bed. No acute distress, calm and cooperative during exam. He is afebrile. Exam 06/16: His right foot is edematous. There is erythema cellulitis. His right great toe is blackened discoloration. He is able to feel sensation in his remaining foot and toes. He does have a 2+ dorsal pedal pulse present. He is able to freely move all of his toes and ankle. He has no pain. He has a plantar wound distal to his right toe MTP that extends beyond his mid foot with surrounding erythema. Results & Data Vital Signs (Past 12 Hours) Vital Signs Temp Pulse Resp BP Pulse Ox O2 Del Method 06/18/23 07:34 36.8 C 84 18 138/84 96 Room Air Laboratory Results 06/18/23 06/18/23 06/17/23 Range/Units 06:42 05:44 20:46 WBC 19.72 H (4.8-10.8) K/ul RBC 3.94 L (4.70-6.10) M/uL Hgb 11.0 L (14.0-18.0) g/dl Hct 33.0 L (42.0-52.0) % MCV 83.8 (80.0-100.0) fL MCH 27.9 (25.0-34.0) pg MCHC 33.3 (32.0-36.0) g/dL RDW Std Deviation 41.9 (36.4-46.3) fL RDW Coeff of Dafne 13.5 (11.5-14.5) % Plt Count 316 (130-400) K/uL MPV 9.7 (9.4-12.4) fL Immature Gran % (Auto) 1.1 % Neut % (Auto) 85.9 % Lymph % (Auto) 4.8 % [place] % (Auto) 6.2 % Eos % (Auto) 1.8 % Baso % (Auto) 0.2 % Neut # (Auto) 16.94 H (1.40-6.50) K/uL Lymph # (Auto) 0.94 L (1.20-3.40) K/uL [place] # (Auto) 1.23 H (0.11-0.59) K/uL Eos # (Auto) 0.36 (0.00-0.50) K/uL Baso # (Auto) 0.04 (0.00-0.20) K/uL Immature Gran # (Auto) 0.21 H (0.01-0.20) K/uL Sodium 133 L (136-145) mmol/L Potassium 4.1 (3.5-5.1) mmol/L Chloride 104 (98-107) mmol/L Carbon Dioxide 21 (21-32) mmol/L Anion Gap 8 (3-11) BUN 26 H (6-23) mg/dl Creatinine 1.06 (0.6-1.4) mg/dl Est Cr Clr Drug Dosing 72.6 ml/min Est GFR ( Amer) 88.6 ml/min Est GFR (Non-Af Amer) 76.4 ml/min BUN/Creatinine Ratio 24.5 H (10-20) Glucose 240 H (70-99(Fasting)) mg/dl POC Glucose 194 H 168 H (70-99) mg/dl Calcium 7.3 L (8.6-10.3) mg/dl Blood Type Antibody Screen 06/17/23 06/17/23 06/17/23 Range/Units 16:47 11:46 10:31 WBC (4.8-10.8) K/ul RBC (4.70-6.10) M/uL Hgb (14.0-18.0) g/dl Hct (42.0-52.0) % MCV (80.0-100.0) fL MCH (25.0-34.0) pg MCHC (32.0-36.0) g/dL RDW Std Deviation (36.4-46.3) fL RDW Coeff of Dafne (11.5-14.5) % Plt Count (130-400) K/uL MPV (9.4-12.4) fL Immature Gran % (Auto) % Neut % (Auto) % Lymph % (Auto) % [place] % (Auto) % Eos % (Auto) % Baso % (Auto) % Neut # (Auto) (1.40-6.50) K/uL Lymph # (Auto) (1.20-3.40) K/uL [place] # (Auto) (0.11-0.59) K/uL Eos # (Auto) (0.00-0.50) K/uL Baso # (Auto) (0.00-0.20) K/uL Immature Gran # (Auto) (0.01-0.20) K/uL Sodium (136-145) mmol/L Potassium (3.5-5.1) mmol/L Chloride (98-107) mmol/L Carbon Dioxide (21-32) mmol/L Anion Gap (3-11) BUN (6-23) mg/dl Creatinine (0.6-1.4) mg/dl Est Cr Clr Drug Dosing ml/min Est GFR ( Amer) ml/min Est GFR (Non-Af Amer) ml/min BUN/Creatinine Ratio (10-20) Glucose (70-99(Fasting)) mg/dl POC Glucose 187 H 198 H (70-99) mg/dl Calcium (8.6-10.3) mg/dl Blood Type A Positive Antibody Screen NEGATIVE
--- NOTE | 2023-06-18 13:14 | History & Physical Bridge Note ---
Date of Service June 18, 2023 History & Physical Bridge Note I have examined the patient, reviewed the History & Physical and in the interval since the performance of the History & Physical I have noted the following changes of clinical significance: no changes noted
[2023-06-18] MEDS ORDERED: LIDOCAINE 2% 2 ML VIAL/AMP(20MG/ML) INFIL ONE (13:17)
[2023-06-18] MEDS ORDERED: DEXAMETHASONE SOD INJ 4 MG/ML VIAL ONE (13:17)
[2023-06-18] MEDS ORDERED: fentaNYL citrate PF 100 MCG/2 ML VIAL ONE (13:17)
[2023-06-18] MEDS ORDERED: ONDANSETRON INJ 2 MG/ML 2 ML VIAL ONE (13:17)
[2023-06-18] MEDS ORDERED: MIDAZOLAM HCL 1 MG/ML 2ML VIAL ONE (13:17)
[2023-06-18] MEDS ORDERED: PROPOFOL IV EMULSION 10 MG/ML 20 ML VIAL IV ONE (13:17)
--- NOTE | 2023-06-18 13:17 | Anesthesiology Consultation ---
Date of Service June 18, 2023 Assessment & Plan (1) Encounter for pre-operative examination: Chart Review Chart Review: Acceptable Risk for Surgery History Surgery Operation Date: 06/18/23 13:40 Proposed Procedures p Right Below Knee Amputation - Inocente Marquis MD Height/Weight Height: 5 ft 8 in Weight: 69.7 kg Allergies Allergy/AdvReac Type Severity Reaction Status Date / Time metformin AdvReac Mild Confusion Verified 06/17/23 16:33 Medications Home Medications Medication Instructions Recorded Confirmed Last Taken cholecalciferol (vitamin D3) 25 25 mcg PO DAILY 06/17/23 06/17/23 06/15/23 mcg (1,000 unit) capsule (Vitamin D3) cyanocobalamin (vitamin B-12) 500 500 mcg PO DAILY 06/17/23 06/17/23 06/15/23 mcg tablet (Vitamin B-12) [id number]-[id number]-[id number] 1 tab PO DAILY 06/17/23 06/17/23 06/15/23 tablet (Multivitamin 50 Plus tablet) Active Medications Generic Name Dose Route Start Last Admin Trade Name Blanca PRN Reason Stop Dose Admin Cyanocobalamin 500 mcg 06/17/23 09:00 06/18/23 08:25 Cyanocobalamin (B-12) 500 Mcg Tablet PO 07/17/23 08:59 500 mcg DAILY LOTUS Administration Sodium Chloride 1,000 mls @ 125 mls/hr 06/17/23 05:23 06/18/23 06:02 Nss IV 07/17/23 05:22 125 mls/hr .Q8H LOTUS Administration Daptomycin 275 mg/ Syringe 5.5 mls @ 2.75 mls/min 06/17/23 06:00 06/18/23 06:03 IV 06/24/23 05:59 2.75 mls/min Q24H LOTUS Administration Protocol Piperacillin Sod/Tazobactam 100 mls @ 25 mls/hr 06/17/23 12:00 06/18/23 11:26 Sod 4.5 gm/ Dextrose IV 06/24/23 11:59 25 mls/hr Q8H LOTUS Administration Protocol Lactated Ringer's 1,000 mls @ 15 mls/hr 06/18/23 13:30 06/18/23 13:23 Lr IV 07/18/23 13:29 15 mls/hr .Q24H LOTUS Administration Insulin Aspart 0 units 06/18/23 06:00 06/18/23 11:31 Insulin Aspart Per Unit Charge SC 07/18/23 05:59 3 units Q6H LOTUS Administration Multivitamins/Minerals 1 tab 06/17/23 09:00 06/18/23 08:25 Cerovite Adv Formula Tab PO 07/17/23 08:59 1 tab DAILY LOTUS Administration Vitamin D 25 mcg 06/17/23 09:00 06/18/23 08:25 Cholecalciferol 25 Mcg (1000 Units) Tab PO 07/17/23 08:59 25 mcg DAILY LOTUS Administration Zolpidem Tartrate 5 mg 06/18/23 00:58 06/18/23 01:34 Zolpidem Tartrate 5 Mg Tab PO 07/18/23 00:57 5 mg HS PRN Administration Sleep NPO Date Last Intake of Fluids: 06/18/23 Time Last Intake of Fluids: 08:45 Past Medical History Medical History (Updated 06/18/23 @ 13:24 by Jerry Gibson MD) Diabetes mellitus with hyperglycemia no treatment past couple years Acute osteomyelitis of right foot Past Surgical History Surgical History (Updated 06/18/23 @ 13:24 by Jerry Gibson MD) Hx of elbow surgery Social History Smoking Status: Never smoker Hx Alcohol Use: Yes alcohol intake frequency: holidays/special occasions only Hx Substance Use: No substance use type: does not use Physical Exam Vital Signs Last Vital Signs Temp 36.8 C 06/18/23 07:34 Pulse 84 06/18/23 07:34 Resp 18 06/18/23 07:34 BP 138/84 06/18/23 07:34 Pulse Ox 96 06/18/23 07:34 O2 Del Method Room Air 06/18/23 07:34 Testing Laboratory Results 06/18/23 06:42 06/18/23 06:42 Hemoglobin A1c 14.1 % (4.5-5.6) H 06/17/23 07:01 Blood Type A Positive 06/17/23 10:31 Antibody Screen NEGATIVE 06/17/23 10:31 06/16/23 23:07 Gram Stain - Final Toe Wound Culture - Preliminary Staphylococcus species 06/16/23 23:25 Aerobic Blood Culture - Preliminary Blood No growth in Aerobic bottle after 24 hours. Anaerobic Blood Culture - Preliminary No growth in Anaerobic bottle after 24 hours. 06/16/23 23:12 Aerobic Blood Culture - Preliminary Blood No growth in Aerobic bottle after 24 hours. Anaerobic Blood Culture - Preliminary No growth in Anaerobic bottle after 24 hours. 06/18/23 06/18/23 11:27 05:44 POC Glucose 206 H 194 H Electrocardiogram Date: 06/17/23 Findings: + NSR @ (81) and + [place] (possible inferior)
[2023-06-18] MEDS: LACTATED RINGER'S 1,000 ML IV SCH (13:23)
[2023-06-18] MEDS ORDERED: ONDANSETRON INJ 2 MG/ML 2 ML VIAL IV PRN (13:29)
[2023-06-18] MEDS ORDERED: ATROPINE SULFATE 0.1 MG/ML 10ML SYR IV PRN (13:29)
[2023-06-18] MEDS ORDERED: HYDROmorphone INJ 1 MG/ML SYRINGE IV PRN (13:29)
[2023-06-18] MEDS ORDERED: DROPERIDOL 5 MG/2 ML VIAL IV PRN (13:29)
[2023-06-18] MEDS: ceFAZolin 2000MG 2,000 MG/15 ML SYR IV SCH (13:55)
[2023-06-18] MEDS: TRANEXAMIC ACID / 0.7% NACL 1,000 MG/100 ML BAG IV ONE (13:55)
[2023-06-18] MEDS: TRANEXAMIC ACID / 0.7% NACL 1000MG/100ML BAG IV ONE (13:55)
[2023-06-18] MEDS ORDERED: ePHEDrine sulfate 50 MG/5 ML SYR ONE (14:10)
--- NOTE | 2023-06-18 14:50 | Electrocardiogram Report ---
Test Reason : Blood Pressure : / mmHG Vent. Rate : 081 BPM Atrial Rate : 081 BPM P-R Int : 156 ms QRS Dur : 074 ms QT Int : 376 ms P-R-T Axes : 081 -54 021 degrees QTc Int : 436 ms Normal sinus rhythm Left axis deviation Inferior infarct , age undetermined Abnormal ECG No previous ECGs available Confirmed by Jonathan Faye ([id number]) on 06/18/2023 2:50:11 PM Referred By: REFERRED SELF Confirmed By:Jonathan Faye
--- NOTE | 2023-06-18 15:20 | Hospitalist Progress Note ---
Date of Service June 18, 2023 Assessment & Plan (1) Acute osteomyelitis of right foot: (2) Diabetes mellitus with hyperglycemia: Plan 58-year-old male with past med history significant for diabetes used to be on metformin but stopped taking it 2 years ago and not seen a doctor for some time went to [facility] because of infection going on the right big toe for last 2 months. He was initially in the [facility] ED; was being planned to transfer to [facility]. Patient decided to come to [facility] for further evaluation Acute osteomyelitis of the right big toe Dry gangrene Diabetic foot wound Blood culture positive gram-positive cocci in chains Patient presented with worsening infection of right great toe for the last 2 months Blood culture in [facility] ED positive for gram-positive cocci in [facility] Foot CT shows diffuse subcutaneous edema and swelling compatible cellulitis, osseous destruction involving the distal phalanx of first digit. Leukocytosis present ESR and CRP significantly elevated Patient planned for below-knee amputation. Continue with Zosyn and daptomycin; repeat blood culture here is negative so far will follow-up on final culture and sensitivity of blood culture from OSH Follow-up on echocardiogram Type II diabetes Currently not taking medications Will place him on sliding scale HbA1c of 14.1% Discussed about restarting insulin at discharge; patient is agreeable. Will need follow-up with PCP to manage diabetes Hyponatremia Sodium 127 on admission; improved to 133 Continue IV fluids BMP daily DVT prophylaxis SCDs for now Disposition Medical floor Full code Please note the above document was generated using voice recognition software. It may contain grammatical, syntax or spelling errors. Any formal questions or concerns about the content, text or information contained within the body of this dictation should be directly addressed to the provider for clarification Admission and Anticipated Discharge Date Admission Date: June 17, 2023 Subjective Patient seen and examined at bedside. He is comfortable; not in distress. He will undergo surgery today. Review of Systems Review of Systems: All systems reviewed & are unremarkable except as noted in Subjective Physical Exam Physical Exam: Constitutional: WD/WN, vitals as above, NAD, sitting up in bed, pleasant, conversing easily Respiratory: normal respiratory effort, lungs clear to auscultation, no wheeze, rales, rhonchi. Normal insp/exp effort, no accessory muscle use Cardiovascular: RRR, no murmur, no edema Vessels: no JVD or carotid bruit Chest: normal inspection of chest Abdomen: normal bowel sounds, soft, nontender, no hepatosplenomegaly Musculoskeletal: Right foot; great toe is necrotic with dry gangrene with large area extending from the base of the MTP joint. Wound in the plantar midfoot as well. No purulent discharge. Skin: no rashes, warm and dry normal turgor Neurologic: PERRL, EOMI, accommodation nl, no face palsy, no dysarthria CN's II- XI intact bilaterally and moves all extremities Psychiatric: A+Ox3, euthymic affect Results & Data Results & Data Vital Signs (Past 12 Hours) Vital Signs Temp Pulse Pulse Resp BP BP Pulse Ox 06/18/23 13:12 36.9 C 82 20 148/96 H 97 06/18/23 07:34 36.8 C 84 18 138/84 96 O2 Del Method 06/18/23 13:12 Room Air 06/18/23 07:34 Room Air
--- NOTE | 2023-06-18 16:09 | Fluoroscopy Report ---
FL knee RT 1 or 2V CLINICAL HISTORY: RIGHT BELOW KNEE AMPUTATION COMPARISON STUDY: None. FLUOROSCOPY TIME: 18 sex FLUOROSCOPY IMAGES: 2 Ka,r: 0.8 mGy FINDINGS: Fluoroscopic images demonstrate a pnsrz-ofb-xzxy amputation. IMPRESSION: Fluoroscopic assistance as above. ACT 112: Negative or not required by law. Electronically signed by: Des Negron M.D. 06/18/2023 4:08 PM
[2023-06-18] MEDS: BUPIVACAINE 0.25% PF 30 ML VIAL ONE (16:33)
[2023-06-18] MEDS: LIDOCAINE 1% LOCAL 20 ML VIAL ONE (16:33)
--- NOTE | 2023-06-18 16:39 | Operative Report ---
Post Operative Report Pre & Post Diagnosis Operation Date: 06/18/23 13:40 Pre-Op Diagnosis: Right Big Toe Infection, Osteomyelitis Post-Op Diagnosis: Necrosis of the right great toe, midfoot abscess, midfoot necrosis. I identified the patient and participated in the time-out.: Yes Procedure Operation Date: 06/18/23 13:40 Actual Procedures p Right Below Knee Amputation(Right) - Inocente Marquis MD Surgeon Inocente Marquis MD Wall Worker ARIADNE [place] no resident or fellow available Estimated Blood Loss 10 Findings Consistent with Post-Op Diagnosis Specimens Culture of the right foot for Gram stain aerobic and anaerobic. Gross pathological specimen of the amputated right lower extremity. Drains Hemovac x 1 Anesthesia Type General Regional Complications none Disposition Accompanied Patient To Recovery: No Disposition: Recovery Room Indications Jerry is 58 years old. He has a 2-month history of right big toe necrosis progressing up into his foot along with increased redness swelling and pain. He is diabetic and has not treated his diabetes for several years. Radiographs show evidence of osteomyelitis of the distal phalanx of the big toe. Clinically however the great toe is completely ischemically necrotic. There is ischemic tissue which is 2 cm in diameter over the dorsal aspect of the first metatarsal phalangeal joint and extensive ischemic tissue over the plantar medial aspect of the foot which extends from the base of the first metatarsal phalangeal joint into the mid arch and over to the level of the second and third ray. The tr eatment options were discussed. I recommended an amputation which is almost certain to be a below-knee amputation although I would evaluate for the possibility for a more distal level. Description of Procedure Informed consent. Patient identified. He identified the operative site as the right foot. I marked with my initials. A preoperative surgical timeout was performed. A preop dose of IV antibiotics was given. He was taken to the operating room positioned supine on the OR table with a bump under the right hip. A tourniquet was applied to the right thigh. The leg was scrubbed with Betadine and prepped with Betadine paint. DVT prophylaxis intraoperatively with foot pumps. Postoperatively with early mobility and aspirin and mechanical devices. TXA given. Fluoroscopic guidance was utilized throughout the surgical procedure. Prior to the start of the procedure I evaluated the areas of necrosis. Photos were obtained for the medical record. The proximal level of the plantar necrosis which extended over to the middle of the plantar aspect of the foot was at the level of the tarsometatarsal joint. There was also an area of necrosis of the dorsal skin. Something like a transmetatarsal amputation would have resulted in a bone resection level distal to the level of viable plantar soft tissue. The dorsal soft tissue was also ischemic and inadequate for folding plantarly. The loss of the plantar tissue significantly compromised the ability to preserve his foot. Therefore a below-knee amputation would be needed. When prepping and draping the necrotic foot was excluded from the field with a impervious stockinette and Ioban. The limb was exsanguinated with the Esmarch and tourniquet plated 250 mmHg the exsanguination began at the ankle which was uninvolved with the infection and proceeded proximally. Fluoroscopic guidance was utilized to jonatan out the proposed level of resection. Based upon his height the optimal resection level was 12-1/2 cm. A 15 cm length was just too long of the distal flap which went down to the purely tendinous portion of the Achilles. I selected an amputation level approximately 13 cm distal to the medial tibial plateau. I marked this on the skin and then made the skin incision 1 cm distal to this. This curved posteriorly and proximally and then a long posterior skin flap of 15 cm in length was made. The width of the leg at the level of resection was approximately 10 cm. The skin was then 5 size followed by the fascia. I exposed the anterior compartment compartment initially and carefully resected the muscle at the level of the proposed resection. The anterior tibial neurovascular bundle was identified doubly ligated with 0 silk ties proximally and singly ligated distally and then cut. I then divided the lateral compartment musculature and prepared the fibula for osteotomy. The intermuscular septum was divided and the tibialis posterior muscle was divided. The neurovascular bundle was identified. At this time I went ahead and remeasured the tibia and then transected it. Retractors were utilized to protect the neurovascular bundle. The anterior aspe ct of the tibia was beveled and smoothed with a saw. I then cut the fibula 1- 1/2 to 2 cm proximal to the tibia. I resected portion of the distal fibula in order to improve visualization and access to the neurovascular structures. The posterior compartment neurovascular structures were identified. The nerve was cut and allowed to retract proximally after crushing it. The artery was triply ligated proximally with 0 and #1 silk. The veins were doubly ligated proximally. All were singly ligated distally and then transected. I then developed the plane superficial to the solea's down to the level of the distal resection and completed the amputation. The tourniquet was then then let down and meticulous hemostasis was performed. The major neurovascular structures were not bleeding. Stick ties with 2-0 Vicryl and electrocautery were utilized were necessary. There was good healthy tissue in the leg. There is a good muscle coverage and adequate skin for closure. Irrigation was performed. Tissue was trimmed were necessary. I folded the posterior flap anteriorly and took the gastrocnemius soleus fascia and tied it down to the anterior fascia of the tibia. I used #1 Vicryl's to do this and to close the remainder of the fascia. A large Hemovac drain was inserted deep within the wound and brought out through the distal medial stump. We then used 0 and 2-0 Vicryl's followed by 2-0 nylon to close the subcutaneous layer and skin. Local anesthetic lidocaine and Marcaine were injected into the skin area. The leg was cleaned with wet and dry sponges and a soft sterile dressing was applied Xeroform 4 x 4's ABDs followed by a posterior splint wrapping over the distal stump and proximally up to the level of the suprapatellar pouch. This was then overwrapped with an Ever wrap. The patient was then awakened from anesthesia and taken to the recovery room in stable condition. There were no complications. Counts were correct and blood loss is estimated to be 10 cc. At the conclusion of the operation spoke to patient's informed her of my findings and gave postop instructions. The amputated limb was evaluated on the back table. I made a longitudinal incision into the necrotic area plantar medially. This tissue was necrotic completely through the skin. I inserted a hemostat into the midfoot area and upon spreading a copious amount of purulence was expressed from the midfoot. A culture was obtained and sent for routine analysis Gram stain aerobic and anaerobic. The foot was sent for as a surgical specimen. I attest to the content of the Intraoperative Record and any orders documented therein. Any exceptions are noted below.
--- NOTE | 2023-06-18 16:45 | Operative Report ---
Post Operative Report Pre & Post Diagnosis Operation Date: 06/18/23 13:40 Pre-Op Diagnosis: Right Big Toe Infection, Osteomyelitis Post-Op Diagnosis: Right Big Toe Infection, Osteomyelitis I identified the patient and participated in the time-out.: Yes Procedure Operation Date: 06/18/23 13:40 Actual Procedures p Right Below Knee Amputation(Right) - Inocente Marquis MD Surgeon Inocente Marquis MD Accountant Helper ARIADNE [place] no resident or fellow available Estimated Blood Loss 10 Findings Consistent with Post-Op Diagnosis Specimens Right lower leg Description of Procedure I was present during the entire case assisting with positioning, prepping, draping, wound retraction, wound closure, dressing and splint application. No fellow present. Please see Dr. Marquis procedure note for specifics of the case. I attest to the content of the Intraoperative Record and any orders documented therein. Any exceptions are noted below.
--- NOTE | 2023-06-18 17:20 | Anesthesiology Progress Note ---
Date of Service June 18, 2023 Anesthesia Post Procedure Vital Signs Vital Signs: Temp Pulse Pulse Resp BP BP Pulse Ox 06/18/23 17:10 37.1 C 85 15 148/80 H 92 06/18/23 17:00 85 14 156/84 H 92 06/18/23 16:50 88 14 162/94 H 92 06/18/23 16:42 36.4 C L 92 H 16 139/83 94 06/18/23 13:12 36.9 C 82 20 148/96 H 97 06/18/23 07:34 36.8 C 84 18 138/84 96 06/17/23 20:58 37 C 84 18 152/72 H 98 O2 Del Method O2 Flow Rate 06/18/23 17:10 Room Air 06/18/23 17:00 Room Air 06/18/23 16:50 Room Air 06/18/23 16:42 Oxymask 2 06/18/23 13:12 Room Air 06/18/23 07:34 Room Air 06/17/23 20:58 Room Air Transfer of Care Handoff Completed per policy Notes Mental Status: alert / awake / arousable Patient Amnestic to Procedure: Yes Nausea / Vomiting: adequately controlled Pain: adequately controlled Airway Patency, RR, SpO2: stable & adequate BP & HR: stable & adequate Hydration State: stable & adequate Anesthetic Complications: no major complications apparent and Pt Satisfied with anesthetic care
[2023-06-18] MEDS: TRANEXAMIC ACID IV ONE (17:40)
[2023-06-18] MEDS: SODIUM CHLORIDE 0.9% IV ONE (17:40)
[2023-06-18] MEDS: ACETAMINOPHEN 325 MG TAB PO PRN (18:00)
[2023-06-18] MEDS: ASPIRIN 81 MG ECTAB PO SCH (20:31)
[2023-06-18] MEDS: ONDANSETRON INJ 2 MG/ML 2 ML VIAL IV PRN (21:51)
[2023-06-19] MEDS: CALCIUM CARBONATE 500 MG CHEWABLE TAB PO PRN (04:25)
[2023-06-19] MEDS: DAPTOmycin 425 MG in SYRINGE 0 ML IV SCH (05:41)
[2023-06-19 07:25] LABS: Basophils # (auto) 0.05 K/uL (0.00-0.20); Basophils % (auto) 0.3 %; Eosinophils # (auto) 0.05 K/uL (0.00-0.50); Eosinophils % (auto) 0.3 %; Hematocrit (blood only) 36.2 % (42.0-52.0); Hemoglobin 11.7 g/dl (14.0-18.0); Immature Granulocytes # (auto) 0.33 K/uL (0.01-0.20); Lymphocytes % (auto) 6.1 %; Mean Corpuscular Hemoglobin 27.5 pg (25.0-34.0); Mean Corpuscular Hgb Conc 32.3 g/dL (32.0-36.0); Mean Corpuscular Volume 85.2 fL (80.0-100.0); Mean Platelet Volume 9.2 fL (9.4-12.4); Monocytes # (auto) 0.99 K/uL (0.11-0.59); Neutrophils # (auto) 14.07 K/uL (1.40-6.50); Neutrophils % (auto) 85.3 %; Platelet Count 392 K/uL (130-400); RDW Coefficient of Variation 13.7 % (11.5-14.5); RDW Standard Deviation 43.1 fL (36.4-46.3); Red Blood Count 4.25 M/uL (4.70-6.10); White Blood Count 16.49 K/ul (4.8-10.8)
[2023-06-19 08:17] LABS: Albumin Globulin Ratio 0.7 (0.9-2); Albumin Level 2.4 gm/dl (3.4-5.0); BUN Creatinine Ratio 23.2 (10-20); Bilirubin,Total 0.3 mg/dl (0.2-1.0); Calcium 7.3 mg/dl (8.6-10.3); Creatinine Clr Calc Pharmacy 68.7 ml/min; Est GFR (African American) 82.9 ml/min; Est GFR (Non-African American) 71.5 ml/min; Globulin 3.3 gm/dl (2.5-4.0); Potassium 5.2 mmol/L (3.5-5.1); Total Protein 5.7 gm/dl (6.0-8.3)
[2023-06-19] MEDS: ALPRAZolam 0.25 MG TABLET PO STA (09:09)
[2023-06-19] MEDS: NIFEdipine EXTENDED REL 30 MG TABCR PO SCH (10:11)
--- NOTE | 2023-06-19 10:17 | Orthopedic Progress Note ---
Date of Service June 19, 2023 Assessment & Plan (1) Below-knee amputation of right lower extremity: Plan: IV antibiotics determined by medicine service Pain controlled p.o. medication Ice with easy wrap May change dressing, remove splint and pull drain tomorrow morning Weightbearing as tolerated on left lower extremity with walker assistance PT/OT DVT prophylaxis with aspirin and WILDER stockings Case management consulted Patient will most likely need discharged to a usp or rehab facility and fitted for prosthetic devices Follow-up at [facility] orthopedics in 2 weeks for suture removal With questions contact our clinic at [phone] Admission and Anticipated Discharge Date Admission Date: June 17, 2023 Subjective This 58-year-old male seen this morning day 1 status post right below the knee amputation due to right foot infection and osteomyelitis. Patient is doing very well this morning. He states his pain is easily managed with the p.o. pain medications he has been given. He states he did experience some phantom pain this morning. Overall he is in good spirits and understands that the amputation was necessary. Patient understands that he will also need to either go to a rehab or usp facility. He states that he was up ambulating on his left lower extremity with walker assistance during his PT session this morning. Currently he denies chest pain, shortness of breath, fever, chills, sweats, nausea, vomiting, diarrhea or difficulty voiding. Review of Systems Review of Systems: All systems reviewed & are unremarkable except as noted in Subjective Physical Exam Physical Exam: Right lower extremity: Dressing and splint are clean dry and intact left in place. Drain is also left in place. Patient is able to perform active straight leg raise test. He has no significant pain or weakness with applied resistance while forward flexing. He is able to detect sensation to touch over the medial and lateral aspect of his thigh. Results & Data Vital Signs (Past 12 Hours) Vital Signs Temp Pulse Resp BP Pulse Ox O2 Del Method 06/19/23 07:47 36.9 C 85 18 178/100 H 97 Room Air 06/19/23 03:09 36.6 C 87 18 151/78 H 95 Room Air 06/18/23 23:12 36.6 C 84 18 143/75 H 92 Room Air Laboratory Results Laboratory Results WBC 16.49 K/ul (4.8-10.8) H 06/19/23 06:53 RBC 4.25 M/uL (4.70-6.10) L 06/19/23 06:53 Hgb 11.7 g/dl (14.0-18.0) L 06/19/23 06:53 Hct 36.2 % (42.0-52.0) L 06/19/23 06:53 MCV 85.2 fL (80.0-100.0) 06/19/23 06:53 MCH 27.5 pg (25.0-34.0) 06/19/23 06:53 MCHC 32.3 g/dL (32.0-36.0) 06/19/23 06:53 RDW Std Deviation 43.1 fL (36.4-46.3) 06/19/23 06:53 RDW Coeff of Dafne 13.7 % (11.5-14.5) 06/19/23 06:53 Plt Count 392 K/uL (130-400) 06/19/23 06:53 MPV 9.2 fL (9.4-12.4) L 06/19/23 06:53 Immature Gran % (Auto) 2.0 % 06/19/23 06:53 Neut % (Auto) 85.3 % 06/19/23 06:53 Lymph % (Auto) 6.1 % 06/19/23 06:53 Gulf % (Auto) 6.0 % 06/19/23 06:53 Eos % (Auto) 0.3 % 06/19/23 06:53 Baso % (Auto) 0.3 % 06/19/23 06:53 Neut # (Auto) 14.07 K/uL (1.40-6.50) H 06/19/23 06:53 Lymph # (Auto) 1.00 K/uL (1.20-3.40) L 06/19/23 06:53 Gulf # (Auto) 0.99 K/uL (0.11-0.59) H 06/19/23 06:53 Eos # (Auto) 0.05 K/uL (0.00-0.50) 06/19/23 06:53 Baso # (Auto) 0.05 K/uL (0.00-0.20) 06/19/23 06:53 Immature Gran # (Auto) 0.33 K/uL (0.01-0.20) H 06/19/23 06:53 Dohle Bodies 1+ 06/17/23 07:01 ESR 126 mm/hr (0-20) H 06/16/23 22:03 Sodium 133 mmol/L (136-145) L 06/19/23 06:53 Potassium 5.2 mmol/L (3.5-5.1) H D 06/19/23 06:53 Chloride 104 mmol/L (98-107) 06/19/23 06:53 Carbon Dioxide 21 mmol/L (21-32) 06/19/23 06:53 Anion Gap 8 (3-11) 06/19/23 06:53 BUN 26 mg/dl (6-23) H 06/19/23 06:53 Creatinine 1.12 mg/dl (0.6-1.4) 06/19/23 06:53 Est Cr Clr Drug Dosing 68.7 ml/min 06/19/23 06:53 Est GFR ( Amer) 82.9 ml/min 06/19/23 06:53 Est GFR (Non-Af Amer) 71.5 ml/min 06/19/23 06:53 BUN/Creatinine Ratio 23.2 (10-20) H 06/19/23 06:53 Glucose 263 mg/dl (70-99(Fasting)) H 06/19/23 06:53 POC Glucose 252 mg/dl (70-99) H 06/19/23 07:43 Estimat Average Glucose 358 mg/dl 06/17/23 07:01 Hemoglobin A1c 14.1 % (4.5-5.6) H 06/17/23 07:01 Calcium 7.3 mg/dl (8.6-10.3) L 06/19/23 06:53 Magnesium 1.9 mg/dl (1.7-2.4) 06/17/23 07:01 Total Bilirubin 0.3 mg/dl (0.2-1.0) 06/19/23 06:53 AST 17 U/L (13-39) 06/19/23 06:53 ALT 14 U/L (7-52) 06/19/23 06:53 Alkaline Phosphatase 116 U/L (34-104) H 06/19/23 06:53 Total Creatine Kinase 38 U/L (30-223) 06/16/23 22:03 C-Reactive Protein 35.45 mg/dl (0-0.5) H 06/16/23 22:03 Total Protein 5.7 gm/dl (6.0-8.3) L 06/19/23 06:53 Albumin 2.4 gm/dl (3.4-5.0) L 06/19/23 06:53 Globulin 3.3 gm/dl (2.5-4.0) 06/19/23 06:53 Albumin/Globulin Ratio 0.7 (0.9-2) L 06/19/23 06:53 Blood Type A Positive 06/17/23 10:31 Antibody Screen NEGATIVE 06/17/23 10:[address] 06/16/23 23:11 Exam(s): CT RIGHT FOOT With Contrast IV Amt: OPTIRAY 320 92ML EXAM: CT Right Lower Extremity With Intravenous Contrast, Foot CLINICAL HISTORY: Reason for exam: ? OM. TECHNIQUE: Axial computed tomography images of the right foot with intravenous contrast. CTDI is 24.91 mGy and DLP is 384.65 mGy-cm. Automated exposure control was utilized for the study. A dose lowering technique was utilized adhering to the principles of ALARA. CONTRAST: Patient received OPTIRAY 320 92ML of IV contrast COMPARISON: No relevant prior studies available. FINDINGS: Diffuse subcutaneous edema surrounding the ankle and foot. Cutaneous defect/ulceration and gas partially surrounding the distal aspect of the first digit clean the underlying the nail bed. Associated cortical destruction and erosion of the distal phalanx with intraosseous gas. Small amount of subcutaneous gas in the plantar aspect of the foot underlying the mid diaphysis of the first metatarsal without involvement of the first metatarsal. No other erosions or cortical destruction. No discrete enhancing soft tissue mass to suggest a phlegmon or abscess. No acute fracture or dislocation. No radiopaque foreign body. IMPRESSION: Diffuse subcutaneous edema and swelling compatible with cellulitis. Focal cutaneous erosions with underlying osseous destruction involving the distal phalanx of the first digit consistent with osteomyelitis. Small amount of gas in the subcutaneous fat overlying the mid first metatarsal without bony destruction. Electronically signed by: Pb Trent M.D. 06/17/23 01:51 AM Venous Doppler Study 06/17/23 00:00 Exam(s): US VENOUS RIGHT LOWER EXTREMITY EXAM: US Duplex Right Lower Extremity Veins CLINICAL HISTORY: Reason for exam: ? dvt. TECHNIQUE: Real-time duplex ultrasound scan of the right lower extremity veins integrating B-mode two-dimensional vascular structure, Doppler spectral analysis, color flow Doppler imaging and compression. COMPARISON: No relevant prior studies available. FINDINGS: Deep veins: Unremarkable. No DVT in the visualized common femoral, femoral, proximal deep femoral or popliteal veins. The veins demonstrate normal color flow, are normally compressible, with normal phasic flow and/or augmentation response. Superficial veins: Unremarkable. No thrombus in the visualized great saphenous vein. Soft tissues: Right calf edema. No popliteal cyst. Right groin lymph node 3.7 x 1.2 x 4.5 cm. Right popliteal fossa lymph node 1.1 x 0.7 x 1. 3 cm. IMPRESSION: No evidence of deep venous thrombosis. Right groin and popliteal lymph nodes. Electronically signed by: Pb Trent M.D. 06/17/23 03:57 AM Foot X-Ray 06/17/23 09:23 XR foot RT min 3V routine HISTORY: 58 years-old Male infection acute right foot pain with reported soft tissue infection COMPARISON: CT 06/16/2023 TECHNIQUE: 3 views of the right foot FINDINGS: Mild diffuse soft tissue swelling. Type II accessory navicular. Multifocal osteoarthritis, mostly mild to moderate however severe within the second metatarsal phalangeal joint. Subcutaneous and deep tissue edema of the first digit with first distal phalangeal osteonecrosis/osteomyelitis redemonstrated. No acute fracture or dislocation. IMPRESSION: Osteomyelitis/osteonecrosis of the first distal phalanx redemonstrated with first digit/volar forefoot soft tissue gas which may be secondary to direct communication with an open wound versus gas gangrene/necrotizing fasciitis. ACT 112: Negative or not required by law. The above report was generated using voice recognition software. It may contain grammatical, syntax or spelling errors. Electronically signed by: Ranjeet Epperson M.D. 06/17/2023 11:28 AM Knee X-Ray 06/18/23 13:40 FL knee RT 1 or 2V CLINICAL HISTORY: RIGHT BELOW KNEE AMPUTATION COMPARISON STUDY: None. FLUOROSCOPY TIME: 18 sex FLUOROSCOPY IMAGES: 2 Ka,r: 0.8 mGy FINDINGS: Fluoroscopic images demonstrate a svvly-olm-panb amputation. IMPRESSION: Fluoroscopic assistance as above. ACT 112: Negative or not required by law. Electronically signed by: Des Negron M.D. 06/18/2023 4:08 PM
[2023-06-19] MEDS ORDERED: PHARMACY GLYCEMIC MGMT CONSULT PRN (15:34)
--- NOTE | 2023-06-19 15:43 | Hospitalist Progress Note ---
Date of Service June 19, 2023 Assessment & Plan (1) Acute osteomyelitis of right foot: (2) Diabetes mellitus with hyperglycemia: Plan 58-year-old male with past med history significant for diabetes used to be on metformin but stopped taking it 2 years ago and not seen a doctor for some time went to [place] ER because of infection going on the right big toe for last 2 months. He was initially in the [place] ED; was being planned to transfer to [facility]. 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 Leukocytosis present ESR and CRP elevated on admission Continue with Zosyn and daptomycin; repeat blood culture here is negative so far will follow-up on final culture and sensitivity of blood culture from OSH Aspirin twice daily for DVT prophylaxis Pain control PT OT evaluation Type II diabetes Currently not taking medications Will place him on sliding scale HbA1c of 14.1% Discussed about restarting insulin at discharge; patient is agreeable. Plan to do once a day glargine 10 units; titrate upwards after that. Pharmacy to provide coupon so that patient can receive first month free. Will need follow-up with PCP and diabetic clinic to manage diabetes Hyponatremia Sodium 127 on admission; improved to 133 Continue IV fluids BMP daily DVT prophylaxis aspirin twice daily Disposition Medical floor Full code Time spent evaluating patient, direct bedside care, chart review, placing orders, interpretation of diagnostic studies, discussion with consultants, patient, and family members, as well as other required patient management activities is 50 minutes Please note the above document was generated using voice recognition software. It may contain grammatical, syntax or spelling errors. Any formal questions or concerns about the content, text or information contained within the body of this dictation should be directly addressed to the provider for clarification Admission and Anticipated Discharge Date Admission Date: June 17, 2023 Subjective Patient seen and examined at bedside He reports pain at surgical site. No other complaints. No significant events overnight Review of Systems Review of Systems: All systems reviewed & are unremarkable except as noted in Subjective Physical Exam Physical Exam: Constitutional: WD/WN, vitals as above, NAD, sitting up in bed, pleasant, conversing easily Respiratory: normal respiratory effort, lungs clear to auscultation, no wheeze, rales, rhonchi. Normal insp/exp effort, no accessory muscle use Cardiovascular: RRR, no murmur, no edema Vessels: no JVD or carotid bruit Chest: normal inspection of chest Abdomen: normal bowel sounds, soft, nontender, no hepatosplenomegaly Musculoskeletal: Bandage in place on right foot Skin: no rashes, warm and dry normal turgor Neurologic: PERRL, EOMI, accommodation nl, no face palsy, no dysarthria CN's II- XI intact bilaterally and moves all extremities Psychiatric: A+Ox3, euthymic affect Results & Data Results & Data Vital Signs (Past 12 Hours) Vital Signs Temp Pulse Resp BP Pulse Ox O2 Del Method 06/19/23 15:28 37.0 C 88 16 156/87 H 96 Room Air 06/19/23 13:58 148/79 H 06/19/23 11:47 36.8 C 87 18 170/91 H 96 Room Air 06/19/23 10:13 149/91 H 06/19/23 07:47 36.9 C 85 18 178/100 H 97 Room Air
[2023-06-19] MEDS: SODIUM CHLORIDE 0.9% 500 ML IV SCH (16:15)
[2023-06-19] MEDS: oxyCODONE HCL IR 5 MG TAB (IMMEDIATE RELEASE) PO PRN (17:43)
[2023-06-19] MEDS: LANTUS PER UNIT CHARGE SQ SCH (17:44)
[2023-06-20 06:31] LABS: Basophils # (auto) 0.06 K/uL (0.00-0.20); Basophils % (auto) 0.5 %; Eosinophils % (auto) 4.6 %; Hematocrit (blood only) 34.9 % (42.0-52.0); Hemoglobin 11.8 g/dl (14.0-18.0); Immature Granulocytes # (auto) 0.22 K/uL (0.01-0.20); Immature Granulocytes % (auto) 1.7 %; Lymphocytes % (auto) 11.6 %; Mean Corpuscular Hemoglobin 28.3 pg (25.0-34.0); Mean Corpuscular Hgb Conc 33.8 g/dL (32.0-36.0); Mean Corpuscular Volume 83.7 fL (80.0-100.0); Mean Platelet Volume 9.3 fL (9.4-12.4); Monocytes % (auto) 7.7 %; Neutrophils # (auto) 9.54 K/uL (1.40-6.50); Neutrophils % (auto) 73.9 %; Platelet Count 403 K/uL (130-400); RDW Coefficient of Variation 13.5 % (11.5-14.5); RDW Standard Deviation 41.6 fL (36.4-46.3); Red Blood Count 4.17 M/uL (4.70-6.10); White Blood Count 12.92 K/ul (4.8-10.8)
[2023-06-20 07:29] LABS: BUN Creatinine Ratio 22.4 (10-20); Calcium 7.3 mg/dl (8.6-10.3); Creatinine Clr Calc Pharmacy 78.5 ml/min; Est GFR (African American) 97.4 ml/min; Est GFR (Non-African American) 84.1 ml/min; Potassium 4.4 mmol/L (3.5-5.1)
[2023-06-20] MEDS: LANTUS PER UNIT CHARGE SC SCH ×2 (09:09→21:34)
--- NOTE | 2023-06-20 11:39 | Infectious Disease Consult ---
Date of Service June 20, 2023 Telehealth Information I performed this visit using a real-time telehealth connection between my location and the patients location ([facility]). After connecting through interactive tele-video, patient was identified by name and date of and/or wristband check.Patient (or authorized healthcare shipping services sales representative) was informed that this was a telemedicine visit and it was being conducted confidentially over secure lines. My office door was closed and no one else was present in the room with me.Patient (or authorized healthcare shipping services sales representative) provided consent to proceed with the visit, expressed an understanding of privacy and security of the telemedicine visit, and gave permission to have a hospital shipping services sales representative in the room in order to assist with the visit and to conduct portions of the visit, as needed. I informed the patient (or authorized healthcare shipping services sales representative) that I reviewed their record and presented the opportunity for them to ask any questions regarding the visit today. The patient agreed to participate. Assessment & Plan (1) Acute osteomyelitis of right foot: (2) Bacteremia due to group B Streptococcus: Plan 58-year-old male past medical history diabetes presenting for right 1st toe dry gangrene. Found to be bacteremic at outside hospital with strep agalactiae. Patient was now s/p right [id number] amputation by Orthopedic Surgery, currently on Zosyn and daptomycin. Repeat blood cultures and TTE negative. With overt source control can treat for a total of 7 days. strep agalactiae bacteremia in setting of right foot osteomyelitis /cellulitis Right 1st toe osteomyelitis /cellulitis s/p [id number] amputation plan: -Discontinue Daptomycin and Zosyn -Repeat blood cultures from 06/15 with no growth to date, 06/17 TTE negative -Start Ceftriaxone 2g IV qd for a total of two weeks therapy from 06/17 (source control) through 07/01 -CBC with diff and CMP weekly until 07/01 Jerry Langley MD Infectious Disease PGY-4 [facility] I directly interacted with the patient and I agree with the assessment and plan .Thank you for allowing us to participate in the care of this patient ID will sign off History of Present Illness History of Present Illness 58-year-old male with a past medical history of type 2 diabetes mellitus presenting to the hospital for right 1st toe gangrene. Apparently for the past 2 months patient's right 1st toe has becoming increasingly infected and as such he went to the [facility] ER for evaluation on 06/14 where his blood culture became positive for 2/2 bottles strep agalactiae (heavy growth ) R- clindamycin/tetracycline S- levofloxacin/linezolid/penicillin /vancomycin. Patient was admitted to [facility], afebrile on presentation with a white count of 27.7. CT right lower extremity with IV contrast showing diffuse subcutaneous edema with swelling compatible with cellulitis erosion/osseous destruction of the distal phalanx of the 1st right digit consistent with osteomyelitis, small amount of gas in subcutaneous fat overlying the mid 1st metatarsal without bony destruction. Evaluated by Orthopedic Surgery who took him to the OR on 06/17 and performed a right BTK amputation. Inspection of the right foot post amputation noted significant purulence on manipulation of the dorsal aspect foot. Superficial swab of the right foot on presentation growing MRSA with surgical specimen culture again growing group B Streptococcus. TTE negative. Repeat blood culture has been negative to date. Patient currently on Zosyn and daptomycin. Patient states that he tolerated the procedure well, currently pain is well controlled. Denies any fever/chills, N/V/D, cp/palpitations, confusion. States he is tolerating po hydration and nutrition. Allergies Allergy/AdvReac Type Severity Reaction Status Date / Time metformin AdvReac Mild Confusion Verified 06/17/23 16:33 Home Medications Medication Instructions Recorded Confirmed Type cholecalciferol (vitamin D3) 25 25 mcg PO DAILY 06/17/23 06/17/23 History mcg (1,000 unit) capsule (Vitamin D3) cyanocobalamin (vitamin B-12) 500 500 mcg PO DAILY 06/17/23 06/17/23 History mcg tablet (Vitamin B-12) [id number] 1 tab PO DAILY 06/17/23 06/17/23 History tablet (Multivitamin 50 Plus tablet) Patient History Medical History (Updated 06/20/23 @ 11:35 by Jerry Langley MD) Diabetes mellitus with hyperglycemia no treatment past couple years Acute osteomyelitis of right foot Surgical History (Updated 06/18/23 @ 13:24 by Jerry Gibson MD) Hx of elbow surgery Social History Smoking Status: Never smoker Hx Alcohol Use: Yes Hx Substance Use: No Preferred Language: Spanish Communication Ability: Effective Biology Adjunct Instructor Required: No Beliefs That Will Affect Care: None Current Living Situation: Spouse Current Living Situation Comment: home with Other Information That Helps Us Care for You: No Feels Safe at Home: Yes Safety Concerns: Feels Safe At This Time Assistive Devices: None Review of Systems Constitutional: No weight loss/gain, fatigue, fever, loss of appetite Eyes: No pain, drainage, vision change HENT: No ear pain/drainage, sinus infections, hearing loss Cardiovascular: No chest pain, palpitations, lower extremity swelling Respiratory: No shortness of breath, wheezing, cough, sputum production Gastrointestinal: No abdominal pain, nausea/vomiting, indigestion/heartburn MSK: pain well controlled Skin: No rash, lesions Neurological: No dizziness, weakness, confusion, sensory changes Physical Exam Telemedicine visit, no physical exam Results & Data Vital Signs (Past 12 Hours) Vital Signs Temp Pulse Resp BP Pulse Ox O2 Del Method 06/20/23 08:01 37.0 C 80 18 163/89 H 94 Room Air Laboratory Results Laboratory Results WBC 12.92 K/ul (4.8-10.8) H 06/20/23 05:47 RBC 4.17 M/uL (4.70-6.10) L 06/20/23 05:47 Hgb 11.8 g/dl (14.0-18.0) L 06/20/23 05:47 Hct 34.9 % (42.0-52.0) L 06/20/23 05:47 MCV 83.7 fL (80.0-100.0) 06/20/23 05:47 MCH 28.3 pg (25.0-34.0) 06/20/23 05:47 MCHC 33.8 g/dL (32.0-36.0) 06/20/23 05:47 RDW Std Deviation 41.6 fL (36.4-46.3) 06/20/23 05:47 RDW Coeff of Dafne 13.5 % (11.5-14.5) 06/20/23 05:47 Plt Count 403 K/uL (130-400) H 06/20/23 05:47 MPV 9.3 fL (9.4-12.4) L 06/20/23 05:47 Immature Gran % (Auto) 1.7 % 06/20/23 05:47 Neut % (Auto) 73.9 % 06/20/23 05:47 Lymph % (Auto) 11.6 % 06/20/23 05:47 [place] % (Auto) 7.7 % 06/20/23 05:47 Eos % (Auto) 4.6 % 06/20/23 05:47 Baso % (Auto) 0.5 % 06/20/23 05:47 Neut # (Auto) 9.54 K/uL (1.40-6.50) H 06/20/23 05:47 Lymph # (Auto) 1.50 K/uL (1.20-3.40) 06/20/23 05:47 [place] # (Auto) 1.00 K/uL (0.11-0.59) H 06/20/23 05:47 Eos # (Auto) 0.60 K/uL (0.00-0.50) H 06/20/23 05:47 Baso # (Auto) 0.06 K/uL (0.00-0.20) 06/20/23 05:47 Immature Gran # (Auto) 0.22 K/uL (0.01-0.20) H 06/20/23 05:47 Dohle Bodies 1+ 06/17/23 07:01 ESR 126 mm/hr (0-20) H 06/16/23 22:03 Sodium 134 mmol/L (136-145) L 06/20/23 05:47 Potassium 4.4 mmol/L (3.5-5.1) 06/20/23 05:47 Chloride 107 mmol/L (98-107) 06/20/23 05:47 Carbon Dioxide 22 mmol/L (21-32) 06/20/23 05:47 Anion Gap 5 (3-11) 06/20/23 05:47 BUN 22 mg/dl (6-23) 06/20/23 05:47 Creatinine 0.98 mg/dl (0.6-1.4) 06/20/23 05:47 Est Cr Clr Drug Dosing 78.5 ml/min 06/20/23 05:47 Est GFR ( Amer) 97.4 ml/min 06/20/23 05:47 Est GFR (Non-Af Amer) 84.1 ml/min 06/20/23 05:47 BUN/Creatinine Ratio 22.4 (10-20) H 06/20/23 05:47 Glucose 184 mg/dl (70-99(Fasting)) H 06/20/23 05:47 POC Glucose 151 mg/dl (70-99) H 06/20/23 07:59 Estimat Average Glucose 358 mg/dl 06/17/23 07:01 Hemoglobin A1c 14.1 % (4.5-5.6) H 06/17/23 07:01 Calcium 7.3 mg/dl (8.6-10.3) L 06/20/23 05:47 Magnesium 1.9 mg/dl (1.7-2.4) 06/17/23 07:01 Total Bilirubin 0.3 mg/dl (0.2-1.0) 06/19/23 06:53 AST 17 U/L (13-39) 06/19/23 06:53 ALT 14 U/L (7-52) 06/19/23 06:53 Alkaline Phosphatase 116 U/L (34-104) H 06/19/23 06:53 Total Creatine Kinase 38 U/L (30-223) 06/16/23 22:03 C-Reactive Protein 35.45 mg/dl (0-0.5) H 06/16/23 22:03 Total Protein 5.7 gm/dl (6.0-8.3) L 06/19/23 06:53 Albumin 2.4 gm/dl (3.4-5.0) L 06/19/23 06:53 Globulin 3.3 gm/dl (2.5-4.0) 06/19/23 06:53 Albumin/Globulin Ratio 0.7 (0.9-2) L 06/19/23 06:53 Blood Type A Positive 06/17/23 10:31 Antibody Screen NEGATIVE 06/17/23 10:[address] 06/16/23 23:11 Exam(s): CT RIGHT FOOT With Contrast IV Amt: OPTIRAY 320 92ML EXAM: CT Right Lower Extremity With Intravenous Contrast, Foot CLINICAL HISTORY: Reason for exam: ? OM. TECHNIQUE: Axial computed tomography images of the right foot with intravenous contrast. CTDI is 24.91 mGy and DLP is 384.65 mGy-cm. Automated exposure control was utilized for the study. A dose lowering technique was utilized adhering to the principles of ALARA. CONTRAST: Patient received OPTIRAY 320 92ML of IV contrast COMPARISON: No relevant prior studies available. FINDINGS: Diffuse subcutaneous edema surrounding the ankle and foot. Cutaneous defect/ulceration and gas partially surrounding the distal aspect of the first digit clean the underlying the nail bed. Associated cortical destruction and erosion of the distal phalanx with intraosseous gas. Small amount of subcutaneous gas in the plantar aspect of the foot underlying the mid diaphysis of the first metatarsal without involvement of the first metatarsal. No other erosions or cortical destruction. No discrete enhancing soft tissue mass to suggest a phlegmon or abscess. No acute fracture or dislocation. No radiopaque foreign body. IMPRESSION: Diffuse subcutaneous edema and swelling compatible with cellulitis. Focal cutaneous erosions with underlying osseous destruction involving the distal phalanx of the first digit consistent with osteomyelitis. Small amount of gas in the subcutaneous fat overlying the mid first metatarsal without bony destruction. Electronically signed by: Pb Trent M.D. 06/17/23 01:51 AM Venous Doppler Study 06/17/23 00:00 Exam(s): US VENOUS RIGHT LOWER EXTREMITY EXAM: US Duplex Right Lower Extremity Veins CLINICAL HISTORY: Reason for exam: ? dvt. TECHNIQUE: Real-time duplex ultrasound scan of the right lower extremity veins integrating B-mode two-dimensional vascular structure, Doppler spectral analysis, color flow Doppler imaging and compression. COMPARISON: No relevant prior studies available. FINDINGS: Deep veins: Unremarkable. No DVT in the visualized common femoral, femoral, proximal deep femoral or popliteal veins. The veins demonstrate normal color flow, are normally compressible, with normal phasic flow and/or augmentation response. Superficial veins: Unremarkable. No thrombus in the visualized great saphenous vein. Soft tissues: Right calf edema. No popliteal cyst. Right groin lymph node 3.7 x 1.2 x 4.5 cm. Right popliteal fossa lymph node 1.1 x 0.7 x 1. 3 cm. IMPRESSION: No evidence of deep venous thrombosis. Right groin and popliteal lymph nodes. Electronically signed by: Pb Trent M.D. 06/17/23 03:57 AM Foot X-Ray 06/17/23 09:23 XR foot RT min 3V routine HISTORY: 58 years-old Male infection acute right foot pain with reported soft tissue infection COMPARISON: CT 06/16/2023 TECHNIQUE: 3 views of the right foot FINDINGS: Mild diffuse soft tissue swelling. Type II accessory navicular. Multifocal osteoarthritis, mostly mild to moderate however severe within the second metatarsal phalangeal joint. Subcutaneous and deep tissue edema of the first digit with first distal phalangeal osteonecrosis/osteomyelitis redemonstrated. No acute fracture or dislocation. IMPRESSION: Osteomyelitis/osteonecrosis of the first distal phalanx redemonstrated with first digit/volar forefoot soft tissue gas which may be secondary to direct communication with an open wound versus gas gangrene/necrotizing fasciitis. ACT 112: Negative or not required by law. The above report was generated using voice recognition software. It may contain grammatical, syntax or spelling errors. Electronically signed by: Ranjeet Epperson M.D. 06/17/2023 11:28 AM Knee X-Ray 06/18/23 13:40 FL knee RT 1 or 2V CLINICAL HISTORY: RIGHT BELOW KNEE AMPUTATION COMPARISON STUDY: None. FLUOROSCOPY TIME: 18 sex FLUOROSCOPY IMAGES: 2 Ka,r: 0.8 mGy FINDINGS: Fluoroscopic images demonstrate a [id number] amputation. IMPRESSION: Fluoroscopic assistance as above. ACT 112: Negative or not required by law. Electronically signed by: Des Negron M.D. 06/18/2023 4:08 PM Diagnostic Findings Microbiology 06/18/23 16:15 Foot,Right Gram Stain - Final 06/18/23 16:15 Foot,Right Aerobic and Anaerobic Culture - Preliminary Group B Beta Strep 06/16/23 23:07 Toe Gram Stain - Final 06/16/23 23:07 Toe Wound Culture - Preliminary Staph aureus MRSA 06/16/23 23:25 Blood Aerobic Blood Culture - Preliminary No growth in Aerobic bottle after 48 hours. 06/16/23 23:25 Blood Anaerobic Blood Culture - Preliminary No growth in Anaerobic bottle after 48 hours. 06/16/23 23:12 Blood Aerobic Blood Culture - Preliminary No growth in Aerobic bottle after 48 hours. 06/16/23 23:12 Blood Anaerobic Blood Culture - Preliminary No growth in Anaerobic bottle after 48 hours.
--- NOTE | 2023-06-20 11:45 | Pharmacy Report ---
Pharmacy Glycemic Short Note 2 - Date of Service June 20, 2023 - Glycemic Short BSG Results (Last 24 hours): 06/19/23 06/19/23 06/19/23 11:52 16:49 20:54 Glucose POC Glucose 273 H 227 H 225 H 06/20/23 06/20/23 05:47 07:59 Glucose 184 H POC Glucose 151 H OUTPATIENT ANTIDIABETIC REGIMEN: * None ASSESSMENT: * 58 y/o M admitted two days ago R foot Osteomyelitis due to diabetic foot wound. He underwent R below knee amputation on 06/17. * History of non-compliance on anti-diabetic meds. Current HbA1c = 14.1%. * Pharmacy consulted for glycemic management yesterday. * BSGs yesterday were elevated above 200 mg/dl all day. Basal 15 units of insulin given at dinner time based on stress between 2 and 3. Novolog initiated also at the same stress level. * Fasting BSG today was 151 mg/dl. Basal insulin 20 units (stress of 3) given this morning. Basal dose scale at HS based on BSG. * Novolog parameters tightened to stress of 3. PLAN FOR INPATIENT GLYCEMIC CONTROL: * Basal insulin * Lantus 15 units x1 SC given last night * Lantus 20 units SC QAM * Lantus 0/5/10 units SC HS * Bolus insulin * NovoLog per scale ACHS or Q6hrs while NPO * Goal Range: Low 110 mg/dL - High 140 mg/dL * Correction Factor: 20 mg/dL/unit * Nutritional / Prandial insulin per carb ratio of 1 unit per 7 grams CHO consumed
--- NOTE | 2023-06-20 14:35 | Hospitalist Progress Note ---
Date of Service June 20, 2023 Assessment & Plan (1) Acute osteomyelitis of right foot: (2) Diabetes mellitus with hyperglycemia: Plan 58-year-old male with past med history significant for diabetes used to be on metformin but stopped taking it 2 years ago and not seen a doctor for some time went to [place] ER because of infection going on the right big toe for last 2 months. He was initially in the [place] ED; was being planned to transfer to [facility]. Patient decided to come to [facility] for further evaluation Acute osteomyelitis of the right big toe Dry gangrene Diabetic foot wound Blood culture positive gram-positive cocci in chains Status post right below-knee amputation on 06/18/2023 Patient presented with worsening infection of right great toe for the last 2 months Blood culture in [place] ED positive for Streptococcus agalactiae(group B strep); sensitive to penicillin, vancomycin; resistance to clindamycin and tetracycline. Foot CT shows diffuse subcutaneous edema and swelling compatible cellulitis, osseous destruction involving the distal phalanx of first digit. Leukocytosis present IntraOp culture also growing group B streptococcus Continue with Zosyn and daptomycin; repeat blood culture here is negative so far. Infectious diseases provided with blood culture results from outside hospital; awaiting final recommendation regarding duration, route and choice of antibiotic. Aspirin twice daily for DVT prophylaxis Pain control PT OT evaluation Type II diabetes Currently not taking medications Will place him on sliding scale HbA1c of 14.1% Discussed about restarting insulin at discharge; patient is agreeable. Plan to do once a day glargine 10 units; titrate upwards after that. Pharmacy to provide coupon so that patient can receive first month free. Will need follow-up with PCP and diabetic clinic to manage diabetes Hyponatremia Sodium 127 on admission; improved to normal levels Continue IV fluids BMP daily DVT prophylaxis aspirin twice daily Disposition Medical floor Full code Time spent evaluating patient, direct bedside care, chart review, placing orders, interpretation of diagnostic studies, discussion with consultants, patient, and family members, as well as other required patient management activities is 50 minutes Please note the above document was generated using voice recognition software. It may contain grammatical, syntax or spelling errors. Any formal questions or concerns about the content, text or information contained within the body of this dictation should be directly addressed to the provider for clarification Admission and Anticipated Discharge Date Admission Date: June 17, 2023 Subjective Patient seen and examined at bedside. He is comfortable; not in distress. Vitals are stable No significant events overnight Review of Systems Review of Systems: All systems reviewed & are unremarkable except as noted in Subjective Physical Exam Physical Exam: Constitutional: WD/WN, vitals as above, NAD, sitting up in bed, pleasant, conversing easily Respiratory: normal respiratory effort, lungs clear to auscultation, no wheeze, rales, rhonchi. Normal insp/exp effort, no accessory muscle use Cardiovascular: RRR, no murmur, no edema Vessels: no JVD or carotid bruit Chest: normal inspection of chest Abdomen: normal bowel sounds, soft, nontender, no hepatosplenomegaly Musculoskeletal: Bandage in place on right foot Skin: no rashes, warm and dry normal turgor Neurologic: PERRL, EOMI, accommodation nl, no face palsy, no dysarthria CN's II- XI intact bilaterally and moves all extremities Psychiatric: A+Ox3, euthymic affect Results & Data Results & Data Vital Signs (Past 12 Hours) Vital Signs Temp Pulse Resp BP Pulse Ox O2 Del Method 06/20/23 08:01 37.0 C 80 18 163/89 H 94 Room Air
--- NOTE | 2023-06-20 15:03 | Orthopedic Progress Note ---
Date of Service June 20, 2023 Assessment & Plan (1) Below-knee amputation of right lower extremity: Plan: IV antibiotics Per infectious diseaseConsult Pain controlled p.o. medication Ice with easy wrap Weightbearing as tolerated on left lower extremity with walker assistance PT/OT DVT prophylaxis with aspirin and WILDER stockings Case management consulted Patient will most likely need discharged to a prison or rehab facility and fitted for prosthetic devices Follow-up at [facility] orthopedics in 2 weeks for suture removal With questions contact our clinic at [phone] I will be out of town until Saturday starting Saturday morning. One of the PAs will continue to round. If there are any questions please contact Dr. Mulligan or Dr. Virk. Admission and Anticipated Discharge Date Admission Date: June 17, 2023 Subjective No problems noted. Pain is well-controlled. He notes discomfort related to the splint and dressing and is eager to have it removed. Physical Exam Physical Exam: Splint and dressing removed. Good healthy viable tissue without significant swelling or hematoma formation. The drain is pulled. The wound edges are well- approximated and there is no significant redness swelling or drainage. He has full knee extension and can flex about 90 degrees. Capillary refill less than 2 seconds in the flap. Results & Data Vital Signs (Past 12 Hours) Vital Signs Temp Pulse Resp BP Pulse Ox O2 Del Method 06/20/23 14:54 37.0 C 82 18 151/74 H 96 Room Air 06/20/23 08:01 37.0 C 80 18 163/89 H 94 Room Air Diagnostic Findings Pathology pending. White count decreasing and nearly normal.
[2023-06-20] MEDS: cefTRIAXone SODIUM 2,000 MG/50 ML BAG IV SCH (17:10)
[2023-06-20] MEDS: MoRPHine SULFATE 2 MG/ML CARP IV PRN (21:33)
[2023-06-21 05:42] LABS: A calco-baum cmplx NotReported Not Detected (NotDetected); Bact fragilis Not Reported Not Detected (NotDetected); Blood Culture Id Panel See PCR Comment (NotDetected); C auris Not Reported Not Detected (NotDetected); Calbicans Not Reported Not Detected (NotDetected); Candida glabrata Not Reported Not Detected (NotDetected); Candida krusei Not Reported Not Detected (NotDetected); Cneoformans/gatti Not Reported Not Detected (NotDetected); Cparapsilosis Not Reported Not Detected (NotDetected); E cloacae compx Not Reported Not Detected (NotDetected); Efaecalis Not Reported Not Detected (NotDetected); Efaecium Not Reported Not Detected (NotDetected); Enterobacterales Not Reported Not Detected (NotDetected); Escherichia coli Not Reported Not Detected (NotDetected); H influenzae Not Reported Not Detected (NotDetected); K aerogenes Not Reported Not Detected (NotDetected); Koxytoca Not Reported Not Detected (NotDetected); Kpneumoniae grp Not Reported Not Detected (NotDetected); Lmonocyt Not Reported Not Detected (NotDetected); N meningitidis Not Reported Not Detected (NotDetected); P aeruginosa Not Reported Not Detected (NotDetected); Proteus spp Not Reported Not Detected (NotDetected); Salmonella spp Not Reported Not Detected (NotDetected); Smarcescens Not Reported Not Detected (NotDetected); Staph lugdunensis Not Reported Not Detected (NotDetected); Staph spp. Not Reported Not Detected (NotDetected); Staphaureus Not Reported Not Detected (NotDetected); Staphepi Not Reported Not Detected (NotDetected); Stenmaltophilia Not Reported Not Detected (NotDetected); Strep agal(GrpB) Not Reported DETECTED (NotDetected); Strep pneum Not Reported Not Detected (NotDetected); Strep pyog (GrpA) Not Reported Not Detected (NotDetected); Strep spp Not Reported DETECTED (NotDetected); Streptococcus spp DETECTED (NotDetected)
[2023-06-21 06:03] LABS: Streptococcus agalactiae(GrpB) DETECTED (NotDetected)
[2023-06-21 07:39] LABS: Basophils # (auto) 0.07 K/uL (0.00-0.20); Basophils % (auto) 0.6 %; Eosinophils # (auto) 0.53 K/uL (0.00-0.50); Eosinophils % (auto) 4.2 %; Hematocrit (blood only) 36.8 % (42.0-52.0); Hemoglobin 11.9 g/dl (14.0-18.0); Immature Granulocytes # (auto) 0.28 K/uL (0.01-0.20); Immature Granulocytes % (auto) 2.2 %; Lymphocytes # (auto) 1.48 K/uL (1.20-3.40); Lymphocytes % (auto) 11.8 %; Mean Corpuscular Hemoglobin 27.4 pg (25.0-34.0); Mean Corpuscular Hgb Conc 32.3 g/dL (32.0-36.0); Mean Corpuscular Volume 84.6 fL (80.0-100.0); Monocytes # (auto) 0.91 K/uL (0.11-0.59); Monocytes % (auto) 7.3 %; Neutrophils # (auto) 9.27 K/uL (1.40-6.50); Neutrophils % (auto) 73.9 %; Platelet Count 422 K/uL (130-400); RDW Coefficient of Variation 13.6 % (11.5-14.5); RDW Standard Deviation 42.3 fL (36.4-46.3); Red Blood Count 4.35 M/uL (4.70-6.10); White Blood Count 12.54 K/ul (4.8-10.8)
--- NOTE | 2023-06-21 08:56 | Pharmacy Report ---
Pharmacy Glycemic Short Note 2 - Date of Service June 21, 2023 - Glycemic Short BSG Results (Last 24 hours): 06/20/23 06/20/23 06/20/23 11:53 16:48 20:46 POC Glucose 142 H 108 H 125 H 06/21/23 07:51 POC Glucose 95 OUTPATIENT ANTIDIABETIC REGIMEN: * None * HbA1c: 14.1% (06/17/23) ASSESSMENT: 06/20: * Jerry received 40 units of insulin yesterday, 25 basal + 15 bolus. BSGs were: [phone] mg/dL. * Fasting continues to trend down, 95 mg/dL this AM. Will reduce basal by 40%. No change to bolus regimen. * Remains on Ceftriaxone for infection. 06/19: * 58 y/o M admitted two days ago R foot Osteomyelitis due to diabetic foot wound. He underwent R below knee amputation on 06/17. * History of non-compliance on anti-diabetic meds. Current HbA1c = 14.1%. * Pharmacy consulted for glycemic management yesterday. * BSGs yesterday were elevated above 200 mg/dl all day. Basal 15 units of insulin given at dinner time based on stress between 2 and 3. Novolog initiated also at the same stress level. * Fasting BSG today was 151 mg/dl. Basal insulin 20 units (stress of 3) given this morning. Basal dose scale at HS based on BSG. * Novolog parameters tightened to stress of 3. PLAN FOR INPATIENT GLYCEMIC CONTROL: * Basal insulin * Lantus 15 units SC daily * Bolus insulin * NovoLog per scale ACHS or Q6hrs while NPO * Goal Range: Low 110 mg/dL - High 140 mg/dL * Correction Factor: 20 mg/dL/unit * Nutritional / Prandial insulin per carb ratio of 1 unit per 7 grams CHO consumed
[2023-06-21] MEDS: LANTUS PER UNIT CHARGE SC SCH (09:01)
[2023-06-21] MEDS: ADVANCED PROBIOTIC 625 MG CAPSULE PO SCH (10:49)
--- NOTE | 2023-06-21 16:51 | Hospitalist Progress Note ---
Date of Service June 21, 2023 Assessment & Plan (1) Acute osteomyelitis of right foot: (2) Diabetes mellitus with hyperglycemia: Plan 58-year-old male with past med history significant for diabetes used to be on metformin but stopped taking it 2 years ago and not seen a doctor for some time went to [place] ER because of infection going on the right big toe for last 2 months. He was initially in the [place] ED; was being planned to transfer to [facility]. Patient decided to come to [facility] for further evaluation Acute osteomyelitis of the right big toe Dry gangrene Diabetic foot wound Blood culture positive gram-positive cocci in chains Status post right below-knee amputation on 06/18/2023 Patient presented with worsening infection of right great toe for the last 2 months Blood culture in [place] ED positive for Streptococcus agalactiae(group B strep); sensitive to penicillin, vancomycin; resistance to clindamycin and tetracycline. Foot CT shows diffuse subcutaneous edema and swelling compatible cellulitis, osseous destruction involving the distal phalanx of first digit. Leukocytosis present IntraOp culture also growing group B streptococcus Initially on Zosyn and daptomycin; Infectious diseases evaled -ceftriaxone 2 g IV daily for total of 2 weeks from 06/17 [source control] through 07/01 06/15 blood culture positive for gram-positive cocci in chains, sent repeat blood culture 06/20. Follow. Aspirin twice daily for DVT prophylaxis Pain control PT OT evaluation Type II diabetes Currently not taking medications sliding scale while inpatient HbA1c of 14.1% Prior attending - Discussed about restarting insulin at discharge; patient is agreeable. Plan to do once a day glargine 10 units; titrate upwards after that. Pharmacy to provide coupon so that patient can receive first month free. Will need follow-up with PCP and diabetic clinic to manage diabetes Hyponatremia Sodium 127 on admission; improved to normal levels Continue IV fluids BMP daily DVT prophylaxis aspirin twice daily Disposition: Medical floor Full code Please note the above document was generated using voice recognition software. It may contain grammatical, syntax or spelling errors. Any formal questions or concerns about the content, text or information contained within the body of this dictation should be directly addressed to the provider for clarification Admission and Anticipated Discharge Date Admission Date: June 17, 2023 Subjective Patient seen and examined at bedside. He is comfortable; not in distress. Vitals are stable. Patient reports operative site pain under control. Patient reports loose stool to yesterday evening and 2 in the morning. C. difficile negative. Probiotic started. Will follow. Can give stool bulking agent if still with loose stool. Otherwise patient does not have any complaints and reports feeling better. Physical Exam Physical Exam: Constitutional: WD/WN, vitals as above, NAD, sitting up in bed, pleasant, conversing easily Respiratory: normal respiratory effort, lungs clear to auscultation, no wheeze, rales, rhonchi. Normal insp/exp effort, no accessory muscle use Cardiovascular: RRR, no murmur, no edema Vessels: no JVD or carotid bruit Chest: normal inspection of chest Abdomen: normal bowel sounds, soft, nontender, no hepatosplenomegaly Musculoskeletal: Bandage in place on right foot, dressing c/d/i. Skin: no rashes, warm and dry normal turgor Neurologic: PERRL, EOMI, accommodation nl, no face palsy, no dysarthria CN's II- XI intact bilaterally and moves all extremities Psychiatric: A+Ox3, euthymic affect Results & Data Results & Data Vital Signs (Past 12 Hours) Vital Signs Temp Pulse Resp BP Pulse Ox O2 Del Method 06/21/23 14:49 36.8 C 82 16 149/80 H 95 Room Air 06/21/23 06:53 36.9 C 77 18 179/96 H 96 Room Air
[2023-06-22 07:06] LABS: Hematocrit (blood only) 41.1 % (42.0-52.0); Hemoglobin 13.2 g/dl (14.0-18.0); Mean Corpuscular Hemoglobin 27.3 pg (25.0-34.0); Mean Corpuscular Hgb Conc 32.1 g/dL (32.0-36.0); Mean Corpuscular Volume 84.9 fL (80.0-100.0); Mean Platelet Volume 8.6 fL (9.4-12.4); Platelet Count 489 K/uL (130-400); RDW Coefficient of Variation 13.7 % (11.5-14.5); RDW Standard Deviation 42.3 fL (36.4-46.3); Red Blood Count 4.84 M/uL (4.70-6.10); White Blood Count 11.82 K/ul (4.8-10.8)
[2023-06-22 07:27] LABS: BUN Creatinine Ratio 20.2 (10-20); Calcium 8.3 mg/dl (8.6-10.3); Creatinine Clr Calc Pharmacy 91.6 ml/min; Est GFR (African American) 111.1 ml/min; Est GFR (Non-African American) 95.8 ml/min; Magnesium 1.8 mg/dl (1.7-2.4); Phosphorus 3.5 mg/dl (2.5-4.9); Potassium 4.3 mmol/L (3.5-5.1)
[2023-06-22] MEDS: hydrALAZINE HCL 20 MG/ML VIAL IV PRN (09:38)
[2023-06-22] MEDS: LOPERAMIDE HCL 2 MG CAP PO PRN (11:29)
[2023-06-22] MEDS: LOSARTAN POTASSIUM 25 MG TAB PO SCH (11:54)
[2023-06-22] MEDS: PSYLLIUM or GUAR GUM FIBER 4GM PACKET PO SCH (11:55)
--- NOTE | 2023-06-22 16:41 | Hospitalist Progress Note ---
Date of Service June 22, 2023 Assessment & Plan (1) Acute osteomyelitis of right foot: (2) Diabetes mellitus with hyperglycemia: Plan 58-year-old male with past med history significant for diabetes used to be on metformin but stopped taking it 2 years ago and not seen a doctor for some time went to [place] ER because of infection going on the right big toe for last 2 months. He was initially in the [place] ED; was being planned to transfer to [facility]. Patient decided to come to [facility] for further evaluation Acute osteomyelitis of the right big toe Dry gangrene Diabetic foot wound Blood culture positive gram-positive cocci in chains Status post right below-knee amputation on 06/18/2023 Patient presented with worsening infection of right great toe for the last 2 months Blood culture in [place] ED positive for Streptococcus agalactiae(group B strep); sensitive to penicillin, vancomycin; resistance to clindamycin and tetracycline. Foot CT shows diffuse subcutaneous edema and swelling compatible cellulitis, osseous destruction involving the distal phalanx of first digit. Leukocytosis present IntraOp culture also growing group B streptococcus Initially on Zosyn and daptomycin; Infectious diseases evaled -ceftriaxone 2 g IV daily for total of 2 weeks from 06/17 [source control] through 07/01 06/15 blood culture positive for gram-positive cocci in chains, sent repeat blood culture 06/20. Follow. Aspirin twice daily for DVT prophylaxis Pain control PT OT evaluation Type II diabetes Currently not taking medications sliding scale while inpatient HbA1c of 14.1% Prior attending - Discussed about restarting insulin at discharge; patient is agreeable. Plan to do once a day glargine 10 units; titrate upwards after that. Pharmacy to provide coupon so that patient can receive first month free. Will need follow-up with PCP and diabetic clinic to manage diabetes Hypertension: High BP while here, ECHO w/ mod concentric LVH. losartan started 06/21 after discussion with the patient, uptitrate as needed. Hyponatremia Sodium 127 on admission; improved to normal levels Continue IV fluids BMP daily DVT prophylaxis aspirin twice daily Disposition: Medical floor Full code Please note the above document was generated using voice recognition software. It may contain grammatical, syntax or spelling errors. Any formal questions or concerns about the content, text or information contained within the body of this dictation should be directly addressed to the provider for clarification Admission and Anticipated Discharge Date Admission Date: June 17, 2023 Subjective Patient seen and examined at bedside. He is comfortable; not in distress. Vitals are stable. Patient reports operative site pain under control. Patient reports loose stool ongoing. C. difficile negative. Probiotic started. added psyllium and prn imodium. follow. Otherwise patient does not have any complaints and reports feeling better. d/w about BP being high, pt would like to go w/ losartan at the time and uptitration as needed. Physical Exam Physical Exam: Constitutional: WD/WN, vitals as above, NAD, sitting up in bed, pleasant, conversing easily Respiratory: normal respiratory effort, lungs clear to auscultation, no wheeze, rales, rhonchi. Normal insp/exp effort, no accessory muscle use Cardiovascular: RRR, no murmur, no edema Vessels: no JVD or carotid bruit Chest: normal inspection of chest Abdomen: normal bowel sounds, soft, nontender, no hepatosplenomegaly Musculoskeletal: Bandage in place on right foot, dressing c/d/i. Skin: no rashes, warm and dry normal turgor Neurologic: PERRL, EOMI, accommodation nl, no face palsy, no dysarthria CN's II- XI intact bilaterally and moves all extremities Psychiatric: A+Ox3, euthymic affect Results & Data Results & Data Vital Signs (Past 12 Hours) Vital Signs Temp Pulse Resp BP BP Pulse Ox O2 Del Method 06/22/23 14:45 37.1 C 79 16 141/81 H 99 Room Air 06/22/23 11:10 174/77 H 177/92 H 06/22/23 09:33 77 179/94 H 06/22/23 07:30 37 C 78 18 185/98 H 99 Room Air
[2023-06-23 06:23] LABS: Hematocrit (blood only) 39.2 % (42.0-52.0); Hemoglobin 12.8 g/dl (14.0-18.0); Mean Corpuscular Hemoglobin 27.4 pg (25.0-34.0); Mean Corpuscular Hgb Conc 32.7 g/dL (32.0-36.0); Mean Corpuscular Volume 83.9 fL (80.0-100.0); Mean Platelet Volume 8.7 fL (9.4-12.4); Platelet Count 433 K/uL (130-400); RDW Coefficient of Variation 13.8 % (11.5-14.5); RDW Standard Deviation 42.3 fL (36.4-46.3); Red Blood Count 4.67 M/uL (4.70-6.10); White Blood Count 13.09 K/ul (4.8-10.8)
[2023-06-23 06:38] LABS: BUN Creatinine Ratio 21.6 (10-20); Calcium 8.2 mg/dl (8.6-10.3); Creatinine Clr Calc Pharmacy 87.4 ml/min; Magnesium 1.7 mg/dl (1.7-2.4); Phosphorus 3.3 mg/dl (2.5-4.9); Potassium 4.9 mmol/L (3.5-5.1)
[2023-06-23] MEDS: LANTUS PER UNIT CHARGE SC SCH (08:47)
--- NOTE | 2023-06-23 16:21 | Hospitalist Progress Note ---
Date of Service June 23, 2023 Assessment & Plan (1) Acute osteomyelitis of right foot: (2) Diabetes mellitus with hyperglycemia: Plan 58-year-old male with past med history significant for diabetes used to be on metformin but stopped taking it 2 years ago and not seen a doctor for some time went to [place] ER because of infection going on the right big toe for last 2 months. He was initially in the [place] ED; was being planned to transfer to [facility]. Patient decided to come to [facility] for further evaluation Acute osteomyelitis of the right big toe Dry gangrene Diabetic foot wound Blood culture positive gram-positive cocci in chains Status post right below-knee amputation on 06/18/2023 Patient presented with worsening infection of right great toe for the last 2 months Blood culture in [place] ED positive for Streptococcus agalactiae(group B strep); sensitive to penicillin, vancomycin; resistance to clindamycin and tetracycline. Foot CT shows diffuse subcutaneous edema and swelling compatible cellulitis, osseous destruction involving the distal phalanx of first digit. Leukocytosis present IntraOp culture also growing group B streptococcus Initially on Zosyn and daptomycin; Infectious diseases evaled -ceftriaxone 2 g IV daily for total of 2 weeks from 06/17 [source control] through 07/01 06/15 blood culture positive for gram-positive cocci in chains, sent repeat blood culture 06/20. Follow. Aspirin twice daily for DVT prophylaxis Pain control PT OT evaluation Type II diabetes Currently not taking medications sliding scale while inpatient HbA1c of 14.1% Prior attending - Discussed about restarting insulin at discharge; patient is agreeable. Plan to do once a day glargine 10 units; titrate upwards after that. Pharmacy to provide coupon so that patient can receive first month free. Will need follow-up with PCP and diabetic clinic to manage diabetes Hypertension: High BP while here, ECHO w/ mod concentric LVH. losartan started 06/21 after discussion with the patient, uptitrate as needed. Hyponatremia Sodium 127 on admission; improved to normal levels Continue IV fluids BMP daily DVT prophylaxis aspirin twice daily Disposition: Medical floor, assiting w/ dispo. Full code Please note the above document was generated using voice recognition software. It may contain grammatical, syntax or spelling errors. Any formal questions or concerns about the content, text or information contained within the body of this dictation should be directly addressed to the provider for clarification Admission and Anticipated Discharge Date Admission Date: June 17, 2023 Subjective Patient seen and examined at bedside. He is comfortable; not in distress. Vitals are stable. Patient reports operative site pain under control. Patient reports improving loose stool. Otherwise patient does not have any complaints and reports feeling better. Physical Exam Physical Exam: Constitutional: WD/WN, vitals as above, NAD, sitting up in bed, pleasant, conversing easily Respiratory: normal respiratory effort, lungs clear to auscultation, no wheeze, rales, rhonchi. Normal insp/exp effort, no accessory muscle use Cardiovascular: RRR, no murmur, no edema Vessels: no JVD or carotid bruit Chest: normal inspection of chest Abdomen: normal bowel sounds, soft, nontender, no hepatosplenomegaly Musculoskeletal: Bandage in place on right foot, dressing c/d/i. Skin: no rashes, warm and dry normal turgor Neurologic: PERRL, EOMI, accommodation nl, no face palsy, no dysarthria CN's II- XI intact bilaterally and moves all extremities Psychiatric: A+Ox3, euthymic affect Results & Data Results & Data Vital Signs (Past 12 Hours) Vital Signs Temp Pulse Resp BP Pulse Ox O2 Del Method 06/23/23 14:35 37.1 C 79 16 149/82 H 99 Room Air 06/23/23 07:38 37.0 C 80 14 157/87 H 98 Room Air
[2023-06-23] MEDS: diphenhydrAMINE 50 MG/ML VIAL IV STA (18:35)
[2023-06-24] MEDS: diphenhydrAMINE 2%/ZINC 0.1% CREAM 28.4GM TUBE EXT PRN (06:07)
[2023-06-24] MEDS: LORATADINE 10 MG TAB PO ONE (06:07)
[2023-06-24 07:28] LABS: BUN Creatinine Ratio 22.4 (10-20); Calcium 7.8 mg/dl (8.6-10.3); Creatinine Clr Calc Pharmacy 90.5 ml/min; Est GFR (African American) 110.5 ml/min; Est GFR (Non-African American) 95.4 ml/min; Potassium 4.2 mmol/L (3.5-5.1)
[2023-06-24 07:38] LABS: Hematocrit (blood only) 38.1 % (42.0-52.0); Mean Corpuscular Hgb Conc 31.5 g/dL (32.0-36.0); Mean Corpuscular Volume 85.6 fL (80.0-100.0); Mean Platelet Volume 8.7 fL (9.4-12.4); Platelet Count 441 K/uL (130-400); RDW Coefficient of Variation 13.8 % (11.5-14.5); RDW Standard Deviation 43.3 fL (36.4-46.3); Red Blood Count 4.45 M/uL (4.70-6.10); White Blood Count 13.53 K/ul (4.8-10.8)
--- NOTE | 2023-06-24 09:34 | Orthopedic Progress Note ---
Date of Service June 24, 2023 Assessment & Plan (1) Below-knee amputation of right lower extremity: Plan: IV antibiotics Per infectious disease Consult - IV ceftriaxone 2g qd until 07/01 with weekly CBC and CMP Pain control with p.o. medication Ice and elevate PRN Weightbearing as tolerated on left lower extremity with walker assistance Reinforce dressing as needed PT/OT DVT prophylaxis with aspirin and WILDER stockings Case management consulted - due to patient not having insurance he will be in hospital for duration of his abxtx until 07/01 Patient will most likely need discharged to a half-way or rehab facility and fitted for prosthetic devices Follow-up at [facility] orthopedics as scheduled with PSS 07/02 - if patient is still in house on 07/01 can do his 2 week post op in the hospital with possible suture removal With questions [place] Text or contact our clinic at [phone] Admission and Anticipated Discharge Date Admission Date: June 17, 2023 Subjective Pt reports he is doing well. Working well with PT. Able to bend and extend his knee. He says that he was going to the bathroom last night and lost his balance trying to open the door and fell. He did not hurt his BKA but he does think he landed on the side of his leg. Nurse checked incision and per patient everything looked okay and they re-wrapped it. He did have a virtual appt with ID and is aware of his abx plan. Due to insurance issues he will be here for the duration of his IV abx. Physical Exam Physical Exam: RT BKA dressing clean, dry and in tact. Pt is able to flex and bend his knee and do SLR with no pain. Thigh soft and compressible. No swelling, bruising or breaks in skin that are visible outside of his dressing. Results & Data Vital Signs (Past 12 Hours) Vital Signs Temp Pulse Resp BP BP Pulse Ox O2 Del Method 06/24/23 07:09 37 C 76 18 178/93 H 98 Room Air 06/24/23 00:43 36.8 C 86 12 175/94 H 97 Room Air Laboratory Results 06/24/23 06/24/23 06/24/23 Range/Units 08:03 06:32 00:37 WBC 13.53 H (4.8-10.8) K/ul RBC 4.45 L (4.70-6.10) M/uL Hgb 12.0 L (14.0-18.0) g/dl Hct 38.1 L (42.0-52.0) % MCV 85.6 (80.0-100.0) fL MCH 27.0 (25.0-34.0) pg MCHC 31.5 L (32.0-36.0) g/dL RDW Std Deviation 43.3 (36.4-46.3) fL RDW Coeff of Dafne 13.8 (11.5-14.5) % Plt Count 441 H (130-400) K/uL MPV 8.7 L (9.4-12.4) fL Sodium 136 (136-145) mmol/L Potassium 4.2 (3.5-5.1) mmol/L Chloride 102 (98-107) mmol/L Carbon Dioxide 30 (21-32) mmol/L Anion Gap 4 (3-11) BUN 19 (6-23) mg/dl Creatinine 0.85 (0.6-1.4) mg/dl Est Cr Clr Drug Dosing 90.5 ml/min Est GFR ( Amer) 110.5 ml/min Est GFR (Non-Af Amer) 95.4 ml/min BUN/Creatinine Ratio 22.4 H (10-20) Glucose 189 H (70-99(Fasting)) mg/dl POC Glucose 157 H 206 H (70-99) mg/dl Calcium 7.8 L (8.6-10.3) mg/dl 06/23/23 06/23/23 06/23/23 Range/Units 19:43 16:38 11:42 WBC (4.8-10.8) K/ul RBC (4.70-6.10) M/uL Hgb (14.0-18.0) g/dl Hct (42.0-52.0) % MCV (80.0-100.0) fL MCH (25.0-34.0) pg MCHC (32.0-36.0) g/dL RDW Std Deviation (36.4-46.3) fL RDW Coeff of Dafne (11.5-14.5) % Plt Count (130-400) K/uL MPV (9.4-12.4) fL Sodium (136-145) mmol/L Potassium (3.5-5.1) mmol/L Chloride (98-107) mmol/L Carbon Dioxide (21-32) mmol/L Anion Gap (3-11) BUN (6-23) mg/dl Creatinine (0.6-1.4) mg/dl Est Cr Clr Drug Dosing ml/min Est GFR ( Amer) ml/min Est GFR (Non-Af Amer) ml/min BUN/Creatinine Ratio (10-20) Glucose (70-99(Fasting)) mg/dl POC Glucose 78 119 H 155 H (70-99) mg/dl Calcium (8.6-10.3) mg/dl Microbiology 06/21/23 17:37 Aerobic Blood Culture - Preliminary Blood No growth in Aerobic bottle after 48 hours. Anaerobic Blood Culture - Preliminary No growth in Anaerobic bottle after 48 hours. 06/21/23 17:37 Aerobic Blood Culture - Preliminary Blood No growth in Aerobic bottle after 48 hours. Anaerobic Blood Culture - Preliminary No growth in Anaerobic bottle after 48 hours. 06/18/23 16:15 Gram Stain - Final Foot,Right Aerobic and Anaerobic Culture - Final Group B Beta Strep 06/16/23 23:25 Aerobic Blood Culture - Preliminary Blood Group B Beta Strep Anaerobic Blood Culture - Final No growth in Anaerobic bottle after 5 days.
[2023-06-24] MEDS: LOSARTAN POTASSIUM 50 MG TAB PO SCH (09:54)
--- NOTE | 2023-06-24 16:15 | Hospitalist Progress Note ---
Date of Service June 24, 2023 Assessment & Plan (1) Acute osteomyelitis of right foot: (2) Diabetes mellitus with hyperglycemia: Plan 58-year-old male with past med history significant for diabetes used to be on metformin but stopped taking it 2 years ago and not seen a doctor for some time went to [place] ER because of infection going on the right big toe for last 2 months. He was initially in the [place] ED; was being planned to transfer to [facility]. Patient decided to come to [facility] for further evaluation Acute osteomyelitis of the right big toe Dry gangrene Diabetic foot wound Blood culture positive gram-positive cocci in chains Status post right below-knee amputation on 06/18/2023 Patient presented with worsening infection of right great toe for the last 2 months Blood culture in [place] ED positive for Streptococcus agalactiae(group B strep); sensitive to penicillin, vancomycin; resistance to clindamycin and tetracycline. Foot CT shows diffuse subcutaneous edema and swelling compatible cellulitis, osseous destruction involving the distal phalanx of first digit. Leukocytosis present IntraOp culture also growing group B streptococcus Initially on Zosyn and daptomycin; Infectious diseases evaled -ceftriaxone 2 g IV daily for total of 2 weeks from 06/17 [source control] through 07/01 06/15 blood culture positive for gram-positive cocci in chains, sent repeat blood culture 06/20. Follow. Aspirin twice daily for DVT prophylaxis Pain control PT OT evaluation Type II diabetes Currently not taking medications sliding scale while inpatient HbA1c of 14.1% Prior attending - Discussed about restarting insulin at discharge; patient is agreeable. Plan to do once a day glargine 10 units; titrate upwards after that. Pharmacy to provide coupon so that patient can receive first month free. Will need follow-up with PCP and diabetic clinic to manage diabetes Hypertension: High BP while here, ECHO w/ mod concentric LVH. losartan started 06/21 after discussion with the patient, uptitrate as needed. Hyponatremia Sodium 127 on admission; improved to normal levels Continue IV fluids BMP daily DVT prophylaxis aspirin twice daily Disposition: Medical floor, assiting w/ dispo. Full code Please note the above document was generated using voice recognition software. It may contain grammatical, syntax or spelling errors. Any formal questions or concerns about the content, text or information contained within the body of this dictation should be directly addressed to the provider for clarification Admission and Anticipated Discharge Date Admission Date: June 17, 2023 Subjective Patient seen and examined at bedside. He is comfortable; not in distress. Vitals are stable. Patient reports operative site pain under control. Patient reports improving loose stool. Otherwise patient does not have any complaints and reports feeling better. Physical Exam Physical Exam: Constitutional: WD/WN, vitals as above, NAD, sitting up in bed, pleasant, conversing easily Respiratory: normal respiratory effort, lungs clear to auscultation, no wheeze, rales, rhonchi. Normal insp/exp effort, no accessory muscle use Cardiovascular: RRR, no murmur, no edema Vessels: no JVD or carotid bruit Chest: normal inspection of chest Abdomen: normal bowel sounds, soft, nontender, no hepatosplenomegaly Musculoskeletal: Bandage in place on right foot, dressing c/d/i. Skin: no rashes, warm and dry normal turgor Neurologic: PERRL, EOMI, accommodation nl, no face palsy, no dysarthria CN's II- XI intact bilaterally and moves all extremities Psychiatric: A+Ox3, euthymic affect Results & Data Results & Data Vital Signs (Past 12 Hours) Vital Signs Temp Pulse Resp BP BP Pulse Ox O2 Del Method 06/24/23 14:49 36.8 C 84 16 142/72 H 100 Room Air 06/24/23 07:09 37 C 76 18 178/93 H 98 Room Air
[2023-06-25 08:19] LABS: Hematocrit (blood only) 40.3 % (42.0-52.0); Hemoglobin 12.8 g/dl (14.0-18.0); Mean Corpuscular Hemoglobin 26.8 pg (25.0-34.0); Mean Corpuscular Hgb Conc 31.8 g/dL (32.0-36.0); Mean Corpuscular Volume 84.3 fL (80.0-100.0); Mean Platelet Volume 8.5 fL (9.4-12.4); Platelet Count 477 K/uL (130-400); RDW Coefficient of Variation 13.8 % (11.5-14.5); RDW Standard Deviation 42.5 fL (36.4-46.3); Red Blood Count 4.78 M/uL (4.70-6.10); White Blood Count 13.34 K/ul (4.8-10.8)
--- NOTE | 2023-06-25 12:11 | Pharmacy Report ---
Pharmacy Glycemic Short Note 2 - Date of Service June 25, 2023 - Glycemic Short BSG Results (Last 24 hours): 06/24/23 06/24/23 06/24/23 15:53 16:52 19:57 POC Glucose 91 119 H 183 H 06/25/23 06/25/23 07:54 12:00 POC Glucose 82 106 H OUTPATIENT ANTIDIABETIC REGIMEN: * None * HbA1c: 14.1% (06/17/23) ASSESSMENT: 06/24: * Pts BSGs remain relatively stable. Minor adjustments made to Novolog parameters this morning for better control throughout the day. * Pharmacy will continue to follow during admission and adjust regimen as indicated. 06/20: * Jerry received 40 units of insulin yesterday, 25 basal + 15 bolus. BSGs were: [id number] mg/dL. * Fasting continues to trend down, 95 mg/dL this AM. Will reduce basal by 40%. No change to bolus regimen. * Remains on Ceftriaxone for infection. 06/19: * 58 y/o M admitted two days ago R foot Osteomyelitis due to diabetic foot wound. He underwent R below knee amputation on 06/17. * History of non-compliance on anti-diabetic meds. Current HbA1c = 14.1%. * Pharmacy consulted for glycemic management yesterday. * BSGs yesterday were elevated above 200 mg/dl all day. Basal 15 units of insulin given at dinner time based on stress between 2 and 3. Novolog initiat ed also at the same stress level. * Fasting BSG today was 151 mg/dl. Basal insulin 20 units (stress of 3) given this morning. Basal dose scale at HS based on BSG. * Novolog parameters tightened to stress of 3. PLAN FOR INPATIENT GLYCEMIC CONTROL: * Basal insulin * Lantus 17 units SC daily * Bolus insulin * NovoLog per scale ACHS or Q6hrs while NPO * Goal Range: Low 110 mg/dL - High 140 mg/dL * Correction Factor: 30 mg/dL/unit * Nutritional / Prandial insulin per carb ratio of 1 unit per 9 grams CHO consumed
--- NOTE | 2023-06-25 16:24 | Hospitalist Progress Note ---
Date of Service June 25, 2023 Assessment & Plan (1) Acute osteomyelitis of right foot: (2) Diabetes mellitus with hyperglycemia: Plan 58-year-old male with past med history significant for diabetes used to be on metformin but stopped taking it 2 years ago and not seen a doctor for some time went to [facility] because of infection going on the right big toe for last 2 months. He was initially in the [facility]; was being planned to transfer to [facility]. 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 Foot CT shows diffuse subcutaneous edema and swelling compatible cellulitis, osseous destruction involving the distal phalanx of first digit. Leukocytosis present IntraOp culture also growing group B streptococcus Initially on Zosyn and daptomycin; Infectious diseases evaled -ceftriaxone 2 g IV daily for total of 2 weeks from 06/17 [source control] through 07/01 06/15 blood culture positive for gram-positive cocci in chains, sent repeat blood culture 06/20. Follow. Aspirin twice daily for DVT prophylaxis Pain control PT OT evaluation Type II diabetes Currently not taking medications sliding scale while inpatient HbA1c of 14.1% Prior attending - Discussed about restarting insulin at discharge; patient is agreeable. Plan to do once a day glargine 10 units; titrate upwards after that. Pharmacy to provide coupon so that patient can receive first month free. Will need follow-up with PCP and diabetic clinic to manage diabetes Hypertension: High BP while here, ECHO w/ mod concentric LVH. losartan started 06/21 after discussion with the patient, uptitrate as needed. Hyponatremia Sodium 127 on admission; improved to normal levels Continue IV fluids BMP daily DVT prophylaxis aspirin twice daily Disposition: Medical floor, assiting w/ dispo. Full code Please note the above document was generated using voice recognition software. It may contain grammatical, syntax or spelling errors. Any formal questions or concerns about the content, text or information contained within the body of this dictation should be directly addressed to the provider for clarification Admission and Anticipated Discharge Date Admission Date: June 17, 2023 Subjective Patient seen and examined at bedside. He is comfortable; not in distress. Vitals are stable. Patient reports operative site pain under control. Patient reports improving loose stool. one loose bm today. Otherwise patient does not have any complaints and reports feeling better. Physical Exam Physical Exam: Constitutional: WD/WN, vitals as above, NAD, sitting up in bed, pleasant, conversing easily Respiratory: normal respiratory effort, lungs clear to auscultation, no wheeze, rales, rhonchi. Normal insp/exp effort, no accessory muscle use Cardiovascular: RRR, no murmur, no edema Vessels: no JVD or carotid bruit Chest: normal inspection of chest Abdomen: normal bowel sounds, soft, nontender, no hepatosplenomegaly Musculoskeletal: Bandage in place on right foot, dressing c/d/i. Skin: no rashes, warm and dry normal turgor Neurologic: PERRL, EOMI, accommodation nl, no face palsy, no dysarthria CN's II- XI intact bilaterally and moves all extremities Psychiatric: A+Ox3, euthymic affect Results & Data Results & Data Vital Signs (Past 12 Hours) Vital Signs Temp Pulse Resp BP BP Pulse Ox O2 Del Method 06/25/23 14:49 37 C 82 16 148/80 H 96 Room Air 06/25/23 07:27 36.9 C 78 16 178/88 H 97 Room Air
[2023-06-25] MEDS: diphenhydrAMINE Capsule 25 MG CAP PO PRN (20:23)
[2023-06-26] MEDS: diphenhydrAMINE Capsule 25 MG CAP PO PRN (02:28)
[2023-06-26] MEDS: LORATADINE 10 MG TAB PO ONE (02:39)
[2023-06-26 06:17] LABS: Hemoglobin 12.2 g/dl (14.0-18.0); Mean Corpuscular Hemoglobin 27.6 pg (25.0-34.0); Mean Corpuscular Volume 83.7 fL (80.0-100.0); Mean Platelet Volume 8.7 fL (9.4-12.4); Platelet Count 410 K/uL (130-400); RDW Coefficient of Variation 13.6 % (11.5-14.5); RDW Standard Deviation 42.2 fL (36.4-46.3); Red Blood Count 4.42 M/uL (4.70-6.10); White Blood Count 11.29 K/ul (4.8-10.8)
[2023-06-26 06:32] LABS: BUN Creatinine Ratio 24.8 (10-20); Calcium 8.1 mg/dl (8.6-10.3); Creatinine Clr Calc Pharmacy 70.6 ml/min; Est GFR (African American) 85.7 ml/min; Est GFR (Non-African American) 73.9 ml/min; Potassium 4.8 mmol/L (3.5-5.1)
--- NOTE | 2023-06-26 17:11 | Hospitalist Progress Note ---
Date of Service June 26, 2023 Assessment & Plan (1) Acute osteomyelitis of right foot: (2) Diabetes mellitus with hyperglycemia: Plan 58-year-old male with past med history significant for diabetes used to be on metformin but stopped taking it 2 years ago and not seen a doctor for some time went to [place] ER because of infection going on the right big toe for last 2 months. He was initially in the [place] ED; was being planned to transfer to [facility]. Patient decided to come to [facility] for further evaluation Acute osteomyelitis of the right big toe Dry gangrene Diabetic foot wound Blood culture positive gram-positive cocci in chains Status post right below-knee amputation on 06/18/2023 Patient presented with worsening infection of right great toe for the last 2 months Blood culture in [place] ED positive for Streptococcus agalactiae(group B strep); sensitive to penicillin, vancomycin; resistance to clindamycin and tetracycline. Foot CT shows diffuse subcutaneous edema and swelling compatible cellulitis, osseous destruction involving the distal phalanx of first digit. Leukocytosis present IntraOp culture also growing group B streptococcus Initially on Zosyn and daptomycin; Infectious diseases evaled -ceftriaxone 2 g IV daily for total of 2 weeks from 06/17 [source control] through 07/01 06/15 blood culture positive for gram-Group B Streptococcus, repeat blood cx from 06/20- no growth till date Aspirin twice daily for DVT prophylaxis Pain control PT OT evaluation Type II diabetes Currently not taking medications sliding scale while inpatient HbA1c of 14.1% Discussed about restarting insulin at discharge; patient is agreeable. Plan to do once a day glargine 10 units; titrate upwards after that. Pharmacy to provide coupon so that patient can receive first month free. Will need follow-up with PCP and diabetic clinic to manage diabetes Hypertension: High BP while here, ECHO w/ mod concentric LVH. losartan started 06/21 after discussion with the patient, uptitrate as needed. Hyponatremia Sodium 127 on admission; improved to normal levels Continue IV fluids BMP daily DVT prophylaxis aspirin twice daily Disposition: Medical floor, assiting w/ dispo. Full code Please note the above document was generated using voice recognition software. It may contain grammatical, syntax or spelling errors. Any formal questions or concerns about the content, text or information contained within the body of this dictation should be directly addressed to the provider for clarification Admission and Anticipated Discharge Date Admission Date: June 17, 2023 Subjective Patient seen and examined at bedside. He is comfortable; not in distress. He reports that he has started to develop some maculopapular rash in the last few days. Review of Systems Review of Systems: All systems reviewed & are unremarkable except as noted in Subjective Physical Exam Physical Exam: Constitutional: WD/WN, vitals as above, NAD, sitting up in bed, pleasant, conversing easily Respiratory: normal respiratory effort, lungs clear to auscultation, no wheeze, rales, rhonchi. Normal insp/exp effort, no accessory muscle use Cardiovascular: RRR, no murmur, no edema Vessels: no JVD or carotid bruit Chest: normal inspection of chest Abdomen: normal bowel sounds, soft, nontender, no hepatosplenomegaly Musculoskeletal: Bandage in place on right foot Skin: Maculopapular rash noted over, abdomen and leg Neurologic: PERRL, EOMI, accommodation nl, no face palsy, no dysarthria CN's II- XI intact bilaterally and moves all extremities Psychiatric: A+Ox3, euthymic affect Results & Data Results & Data Vital Signs (Past 12 Hours) Vital Signs Temp Pulse Pulse Resp BP BP Pulse Ox 06/26/23 14:34 37.0 C 79 16 120/69 99 06/26/23 07:07 36.9 C 73 16 184/92 H 180/89 H 98 O2 Del Method 06/26/23 14:34 Room Air 06/26/23 07:07 Room Air
[2023-06-27 09:39] LABS: Basophils # (auto) 0.08 K/uL (0.00-0.20); Basophils % (auto) 0.8 %; Eosinophils # (auto) 0.64 K/uL (0.00-0.50); Eosinophils % (auto) 6.2 %; Hematocrit (blood only) 40.5 % (42.0-52.0); Hemoglobin 12.9 g/dl (14.0-18.0); Immature Granulocytes # (auto) 0.08 K/uL (0.01-0.20); Immature Granulocytes % (auto) 0.8 %; Lymphocytes # (auto) 1.65 K/uL (1.20-3.40); Lymphocytes % (auto) 15.9 %; Mean Corpuscular Hgb Conc 31.9 g/dL (32.0-36.0); Mean Corpuscular Volume 84.9 fL (80.0-100.0); Mean Platelet Volume 8.6 fL (9.4-12.4); Monocytes % (auto) 6.8 %; Neutrophils # (auto) 7.22 K/uL (1.40-6.50); Neutrophils % (auto) 69.5 %; Platelet Count 391 K/uL (130-400); RDW Coefficient of Variation 13.7 % (11.5-14.5); RDW Standard Deviation 42.5 fL (36.4-46.3); Red Blood Count 4.77 M/uL (4.70-6.10); White Blood Count 10.37 K/ul (4.8-10.8)
[2023-06-27 09:59] LABS: Calcium 8.1 mg/dl (8.6-10.3); Creatinine Clr Calc Pharmacy 66.9 ml/min; Est GFR (African American) 80.3 ml/min; Est GFR (Non-African American) 69.3 ml/min; Potassium 5.2 mmol/L (3.5-5.1)
[2023-06-27] MEDS: SODIUM CHLORIDE 0.9% 500 ML IV SCH (12:29)
--- NOTE | 2023-06-27 14:24 | Orthopedic Progress Note ---
Date of Service June 27, 2023 Assessment & Plan (1) Below-knee amputation of right lower extremity: Plan: IV antibiotics Per infectious disease Consult - IV ceftriaxone 2g qd until 07/01 with weekly CBC and CMP Doing well. Will continue to monitor. I think elevating may help with some of the swelling of the stump area. Continue the IV antibiotics per ID recommendations. He can be up and about with walker. Admission and Anticipated Discharge Date Admission Date: June 17, 2023 Subjective No problems reported. Here to complete antibiotics. He reports losing his balance and falling on Saturday and he bumped his knee. Otherwise things have been going well and he has no pain. Physical Exam Physical Exam: Dressing is changed. There is some yellow serous drainage anteromedially on the dressing. The wound is benign. There is no erythema or active drainage. Nontender with mild swelling. There is some fluid oozing out from the drain hole. He cannot fully straighten the knee and flex to just about 100. Results & Data Vital Signs (Past 12 Hours) Vital Signs Temp Pulse Resp BP BP Pulse Ox O2 Del Method 06/27/23 07:06 36.8 C 76 16 179/93 H 180/93 H 98 Room Air
--- NOTE | 2023-06-27 15:02 | Pharmacy Report ---
Pharmacy Glycemic Short Note 2 - Date of Service June 27, 2023 - Glycemic Short BSG Results (Last 24 hours): 06/26/23 06/26/23 06/27/23 16:22 19:32 07:12 Glucose POC Glucose 122 H 118 H 133 H 06/27/23 06/27/23 09:28 11:16 Glucose 272 H POC Glucose 167 H OUTPATIENT ANTIDIABETIC REGIMEN: * None * HbA1c: 14.1% (06/17/23) ASSESSMENT: 06/26: * Jerry received 40 units of SQ insulin yesterday with good glycemic control: 128, 162, 122, 118 mg/dL. * Fasting BSG is trending upward. Will increase basal insulin slightly. * Post prandial values are acceptable. No changes to Novolog. 06/24: * Pts BSGs remain relatively stable. Minor adjustments made to Novolog parameters this morning for better control throughout the day. * Pharmacy will continue to follow during admission and adjust regimen as i ndicated. 06/20: * Jerry received 40 units of insulin yesterday, 25 basal + 15 bolus. BSGs were: [id number] mg/dL. * Fasting continues to trend down, 95 mg/dL this AM. Will reduce basal by 40%. No change to bolus regimen. * Remains on Ceftriaxone for infection. 06/19: * 58 y/o M admitted two days ago R foot Osteomyelitis due to diabetic foot wound. He underwent R below knee amputation on 06/17. * History of non-compliance on anti-diabetic meds. Current HbA1c = 14.1%. * Pharmacy consulted for glycemic management yesterday. * BSGs yesterday were elevated above 200 mg/dl all day. Basal 15 units of i nsulin given at dinner time based on stress between 2 and 3. Novolog initiated also at the same stress level. * Fasting BSG today was 151 mg/dl. Basal insulin 20 units (stress of 3) given this morning. Basal dose scale at HS based on BSG. * Novolog parameters tightened to stress of 3. PLAN FOR INPATIENT GLYCEMIC CONTROL: * Basal insulin * Lantus 18 units SC daily * Bolus insulin * NovoLog per scale ACHS or Q6hrs while NPO * Goal Range: Low 110 mg/dL - High 140 mg/dL * Correction Factor: 30 mg/dL/unit * Nutritional / Prandial insulin per carb ratio of 1 unit per 9 grams CHO consumed
[2023-06-27] MEDS: DAPTOmycin 425 MG in SYRINGE 0 ML IV SCH (15:51)
--- NOTE | 2023-06-27 16:11 | Hospitalist Progress Note ---
Date of Service June 27, 2023 Assessment & Plan (1) Acute osteomyelitis of right foot: (2) Diabetes mellitus with hyperglycemia: Plan 58-year-old male with past med history significant for diabetes used to be on metformin but stopped taking it 2 years ago and not seen a doctor for some time went to [place] [facility] because of infection going on the right big toe for last 2 months. He was initially in the [place] ED; was being planned to transfer to [facility]. Patient decided to come to [facility] [place] for further evaluation Acute osteomyelitis of the right big toe Dry gangrene Diabetic foot wound Blood culture positive gram-positive cocci in chains Status post right below-knee amputation on 06/18/2023 Patient presented with worsening infection of right great toe for the last 2 months Blood culture in [place] ED positive for Streptococcus agalactiae(group B strep); sensitive to penicillin, vancomycin; resistance to clindamycin and tetracycline. Foot CT shows diffuse subcutaneous edema and swelling compatible cellulitis, osseous destruction involving the distal phalanx of first digit. Leukocytosis present IntraOp culture also growing group B streptococcus Initially on Zosyn and daptomycin; Infectious diseases evaled -ceftriaxone 2 g IV daily for total of 2 weeks from 06/17 [source control] through 07/01 06/15 blood culture positive for gram-Group B Streptococcus, repeat blood cx from 06/20- no growth till date Aspirin twice daily for DVT prophylaxis Patient reported maculopapular rash on his upper extremity, abdomen and lower extremity. Discussion was done with infectious disease(Dr. Shelley) on 06/26 regarding alternative choice; recommended daptomycin. Will continue daptomycin till July 01 Type II diabetes Currently not taking medications sliding scale while inpatient HbA1c of 14.1% Discussed about restarting insulin at discharge; patient is agreeable. Plan to do once a day glargine 18 units; titrate upwards after that. Pharmacy to provide coupon so that patient can receive first month free. Will need follow-up with PCP and diabetic clinic to manage diabetes Hypertension: High BP while here, ECHO w/ mod concentric LVH. currently on nifedipine. losartan on hold due to hyperkalemia. Hyponatremia Sodium 127 on admission; improved to normal levels Continue IV fluids BMP daily DVT prophylaxis aspirin twice daily Disposition: Medical floor, assiting w/ dispo. Full code Please note the above document was generated using voice recognition software. It may contain grammatical, syntax or spelling errors. Any formal questions or concerns about the content, text or information contained within the body of this dictation should be directly addressed to the provider for clarification Admission and Anticipated Discharge Date Admission Date: June 17, 2023 Subjective Seen and examined at bedside. He is lying on the bed comfortably; not in distress. Denies pain or discomfort No fever, chills, chest pain or shortness of breath. Review of Systems Review of Systems: All systems reviewed & are unremarkable except as noted in Subjective Physical Exam Physical Exam: Constitutional: WD/WN, vitals as above, NAD, sitting up in bed, pleasant, conversing easily Respiratory: normal respiratory effort, lungs clear to auscultation, no wheeze, rales, rhonchi. Normal insp/exp effort, no accessory muscle use Cardiovascular: RRR, no murmur, no edema Vessels: no JVD or carotid bruit Chest: normal inspection of chest Abdomen: normal bowel sounds, soft, nontender, no hepatosplenomegaly Musculoskeletal: Bandage in place on right leg Skin: Maculopapular rash noted over, abdomen and leg Neurologic: PERRL, EOMI, accommodation nl, no face palsy, no dysarthria CN's II- XI intact bilaterally and moves all extremities Psychiatric: A+Ox3, euthymic affect Results & Data Results & Data Vital Signs (Past 12 Hours) Vital Signs Temp Pulse Resp BP BP Pulse Ox O2 Del Method 06/27/23 14:30 36.9 C 73 16 125/79 99 Room Air 06/27/23 07:06 36.8 C 76 16 179/93 H 180/93 H 98 Room Air
[2023-06-28] MEDS: LANTUS PER UNIT CHARGE SC SCH (08:21)
[2023-06-28 08:50] LABS: BUN Creatinine Ratio 29.2 (10-20); Calcium 8.7 mg/dl (8.6-10.3); Creatinine Clr Calc Pharmacy 72.6 ml/min; Est GFR (African American) 88.6 ml/min; Est GFR (Non-African American) 76.4 ml/min; Potassium 4.4 mmol/L (3.5-5.1)
--- NOTE | 2023-06-28 16:01 | Hospitalist Progress Note ---
Date of Service June 28, 2023 Assessment & Plan (1) Acute osteomyelitis of right foot: (2) Diabetes mellitus with hyperglycemia: Plan 58-year-old male with past med history significant for diabetes used to be on metformin but stopped taking it 2 years ago and not seen a doctor for some time went to [place] ER because of infection going on the right big toe for last 2 months. He was initially in the [place] ED; was being planned to transfer to [facility]. Patient decided to come to [facility] for further evaluation Acute osteomyelitis of the right big toe Dry gangrene Diabetic foot wound Blood culture positive gram-positive cocci in chains Status post right below-knee amputation on 06/18/2023 Patient presented with worsening infection of right great toe for the last 2 months Blood culture in [place] ED positive for Streptococcus agalactiae(group B strep); sensitive to penicillin, vancomycin; resistance to clindamycin and tetracycline. Foot CT shows diffuse subcutaneous edema and swelling compatible cellulitis, osseous destruction involving the distal phalanx of first digit. Leukocytosis present IntraOp culture also growing group B streptococcus Initially on Zosyn and daptomycin; Infectious diseases evaled -ceftriaxone 2 g IV daily for total of 2 weeks from 06/17 [source control] through 07/01 06/15 blood culture positive for gram-Group B Streptococcus, repeat blood cx from 06/20- no growth till date Aspirin twice daily for DVT prophylaxis Patient reported maculopapular rash on his upper extremity, abdomen and lower extremity. Discussion was done with infectious disease(Dr. Shelley) on 06/26 regarding alternative choice; recommended daptomycin. Will continue daptomycin till June Type II diabetes Currently not taking medications sliding scale while inpatient HbA1c of 14.1% Discussed about restarting insulin at discharge; patient is agreeable. Plan to do once a day glargine 18 units; titrate upwards after that. Pharmacy to provide coupon so that patient can receive first month free. Will need follow-up with PCP and diabetic clinic to manage diabetes Hypertension: High BP while here, ECHO w/ mod concentric LVH. currently on nifedipine. losartan on hold due to hyperkalemia. Hyponatremia Sodium 127 on admission; improved to normal levels BMP daily DVT prophylaxis aspirin twice daily Disposition: Medical floor, assiting w/ dispo. Full code Please note the above document was generated using voice recognition software. It may contain grammatical, syntax or spelling errors. Any formal questions or concerns about the content, text or information contained within the body of this dictation should be directly addressed to the provider for clarification Admission and Anticipated Discharge Date Admission Date: June 17, 2023 Subjective Patient seen and examined at bedside. Comfortable; not in distress. Denies fever, chills, chest pain, shortness of breath, abdominal pain or urinary symptoms. No significant overnight events Still reports itching on the rashes Review of Systems Review of Systems: All systems reviewed & are unremarkable except as noted in Subjective Physical Exam Physical Exam: Constitutional: WD/WN, vitals as above, NAD, sitting up in bed, pleasant, conversing easily Respiratory: normal respiratory effort, lungs clear to auscultation, no wheeze, rales, rhonchi. Normal insp/exp effort, no accessory muscle use Cardiovascular: RRR, no murmur, no edema Vessels: no JVD or carotid bruit Chest: normal inspection of chest Abdomen: normal bowel sounds, soft, nontender, no hepatosplenomegaly Musculoskeletal: Bandage in place on right leg Skin: Maculopapular rash noted over, abdomen and legs Neurologic: PERRL, EOMI, accommodation nl, no face palsy, no dysarthria CN's II- XI intact bilaterally and moves all extremities Psychiatric: A+Ox3, euthymic affect Results & Data Results & Data Vital Signs (Past 12 Hours) Vital Signs Temp Pulse Pulse Resp BP Pulse Ox O2 Del Method 06/28/23 15:12 36.9 C 69 16 113/71 94 Room Air 06/28/23 07:48 36.8 C 75 18 161/88 H 100 Room Air
--- NOTE | 2023-06-29 14:01 | Hospitalist Progress Note ---
Date of Service June 29, 2023 Assessment & Plan (1) Acute osteomyelitis of right foot: (2) Diabetes mellitus with hyperglycemia: Plan 58-year-old male with past med history significant for diabetes used to be on metformin but stopped taking it 2 years ago and not seen a doctor for some time went to [place] ER because of infection going on the right big toe for last 2 months. He was initially in the [place] ED; was being planned to transfer to [facility]. Patient decided to come to [facility] [place] for further evaluation Acute osteomyelitis of the right big toe Dry gangrene Diabetic foot wound Blood culture positive gram-positive cocci in chains Status post right below-knee amputation on 06/18/2023 Patient presented with worsening infection of right great toe for the last 2 months Blood culture in [place] ED positive for Streptococcus agalactiae(group B strep); sensitive to penicillin, vancomycin; resistance to clindamycin and tetracycline. Foot CT shows diffuse subcutaneous edema and swelling compatible cellulitis, osseous destruction involving the distal phalanx of first digit. Leukocytosis present IntraOp culture also growing group B streptococcus Initially on Zosyn and daptomycin; Infectious diseases evaled -ceftriaxone 2 g IV daily for total of 2 weeks from 06/17 [source control] through 07/01 06/15 blood culture positive for gram-Group B Streptococcus, repeat blood cx from 06/20- no growth till date Aspirin twice daily for DVT prophylaxis Patient reported maculopapular rash on his upper extremity, abdomen and lower extremity. Discussion was done with infectious disease(Dr. Shelley) on 06/26 regarding alternative choice; recommended daptomycin. Will continue daptomycin till June Type II diabetes Currently not taking medications sliding scale while inpatient HbA1c of 14.1% Discussed about restarting insulin at discharge; patient is agreeable. Plan to do once a day glargine 18 units; titrate upwards after that. Pharmacy to provide coupon so that patient can receive first month free. Will need follow-up with PCP and diabetic clinic to manage diabetes Hypertension: High BP while here, ECHO w/ mod concentric LVH. currently on nifedipine. losartan on hold due to hyperkalemia. Hyponatremia Sodium 127 on admission; improved to normal levels BMP daily DVT prophylaxis aspirin twice daily Disposition: Medical floor, assiting w/ dispo. Full code Please note the above document was generated using voice recognition software. It may contain grammatical, syntax or spelling errors. Any formal questions or concerns about the content, text or information contained within the body of this dictation should be directly addressed to the provider for clarification Admission and Anticipated Discharge Date Admission Date: June 17, 2023 Subjective patient seen and examined at bedside He reports that the rash is slightly improved in the last few days Afebrile; hemodynamically stable Review of Systems Review of Systems: All systems reviewed & are unremarkable except as noted in Subjective Physical Exam Physical Exam: Constitutional: WD/WN, vitals as above, NAD, sitting up in bed, pleasant, conversing easily Respiratory: normal respiratory effort, lungs clear to auscultation, no wheeze, rales, rhonchi. Normal insp/exp effort, no accessory muscle use Cardiovascular: RRR, no murmur, no edema Vessels: no JVD or carotid bruit Chest: normal inspection of chest Abdomen: normal bowel sounds, soft, nontender, no hepatosplenomegaly Musculoskeletal: Bandage in place on right leg Skin: Maculopapular rash noted over, abdomen and legs Neurologic: PERRL, EOMI, accommodation nl, no face palsy, no dysarthria CN's II- XI intact bilaterally and moves all extremities Psychiatric: A+Ox3, euthymic affect Results & Data Results & Data Vital Signs (Past 12 Hours) Vital Signs Temp Pulse Resp BP Pulse Ox O2 Del Method 06/29/23 07:03 37.0 C 75 16 147/78 H 97 Room Air 06/29/23 03:02 36.8 C 70 16 163/95 H 97 Room Air
[2023-06-30] MEDS: LANTUS PER UNIT CHARGE SC SCH (08:45)
[2023-06-30] MEDS: NIFEdipine EXTENDED REL 30 MG TABCR PO SCH (08:45)
--- NOTE | 2023-06-30 12:10 | Hospitalist Progress Note ---
Date of Service June 30, 2023 Assessment & Plan (1) Acute osteomyelitis of right foot: (2) Diabetes mellitus with hyperglycemia: Plan 58-year-old male with past med history significant for diabetes used to be on metformin but stopped taking it 2 years ago and not seen a doctor for some time went to [facility] because of infection going on the right big toe for last 2 months. He was initially in the [facility] ED; was being planned to transfer to [facility]. 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 Foot CT shows diffuse subcutaneous edema and swelling compatible cellulitis, osseous destruction involving the distal phalanx of first digit. Leukocytosis present IntraOp culture also growing group B streptococcus Initially on Zosyn and daptomycin; Infectious diseases evaled -ceftriaxone 2 g IV daily for total of 2 weeks from 06/17 [source control] through 07/01 06/15 blood culture positive for gram-Group B Streptococcus, repeat blood cx from 06/20- no growth till date Aspirin twice daily for DVT prophylaxis Patient reported maculopapular rash on his upper extremity, abdomen and lower extremity. Discussion was done with infectious disease(Dr. Shelley) on 06/26 regarding alternative choice; recommended daptomycin. Will continue daptomycin till June Type II diabetes Currently not taking medications sliding scale while inpatient HbA1c of 14.1% Discussed about restarting insulin at discharge; patient is agreeable. Plan to do once a day glargine 15 units; titrate upwards after that. Pharmacy to provide coupon so that patient can receive first month free. Will need follow-up with PCP and diabetic clinic to manage diabetes Hypertension: High BP while here, ECHO w/ mod concentric LVH. currently on nifedipine. Hyponatremia Sodium 127 on admission; improved to normal levels DVT prophylaxis aspirin twice daily Disposition: Medical floor, assiting w/ dispo. Full code Please note the above document was generated using voice recognition software. It may contain grammatical, syntax or spelling errors. Any formal questions or concerns about the content, text or information contained within the body of this dictation should be directly addressed to the provider for clarification Admission and Anticipated Discharge Date Admission Date: June 17, 2023 Subjective Patient seen and examined at bedside. He is comfortable; not in any distress. Rash with slight improvement overall. Review of Systems Review of Systems: All systems reviewed & are unremarkable except as noted in Subjective Physical Exam Physical Exam: Constitutional: WD/WN, vitals as above, NAD, sitting up in bed, pleasant, conversing easily Respiratory: normal respiratory effort, lungs clear to auscultation, no wheeze, rales, rhonchi. Normal insp/exp effort, no accessory muscle use Cardiovascular: RRR, no murmur, no edema Vessels: no JVD or carotid bruit Chest: normal inspection of chest Abdomen: normal bowel sounds, soft, nontender, no hepatosplenomegaly Musculoskeletal: Bandage in place on right leg Skin: Maculopapular rash noted over, abdomen and legs Neurologic: PERRL, EOMI, accommodation nl, no face palsy, no dysarthria CN's II- XI intact bilaterally and moves all extremities Psychiatric: A+Ox3, euthymic affect Results & Data Results & Data Vital Signs (Past 12 Hours) Vital Signs Temp Pulse Resp BP Pulse Ox O2 Del Method 06/30/23 07:44 37.0 C 69 17 167/92 H 99 Room Air
--- NOTE | 2023-06-30 14:49 | Pharmacy Report ---
Pharmacy Glycemic Short Note 2 - Date of Service June 30, 2023 - Glycemic Short BSG Results (Last 24 hours): 06/29/23 06/29/23 06/30/23 16:22 20:33 07:43 POC Glucose 148 H 113 H 149 H 06/30/23 11:36 POC Glucose 158 H OUTPATIENT ANTIDIABETIC REGIMEN: * None * HbA1c: 14.1% (06/17/23) ASSESSMENT: 06/29: * BSGs yesterday were [phone] mg/dl. Patient received 18 units basal and 17 units bolus insulin. * Since pre-lunch BSG was lower yesterday, basal insulin was reduced to 12 units today. However, since fasting BSG trended up to 149 mg/dl, basal insulin increased to 15 units for tomorrow AM. * Novolog carb ratio was loosened with dinner yesterday. Continued this today. 06/26: * Jerry received 40 units of SQ insulin yesterday with good glycemic control: 128, 162, 122, 118 mg/dL. * Fasting BSG is trending upward. Will increase basal insulin slightly. * Post prandial values are acceptable. No changes to Novolog. 06/24: * Pts BSGs remain relatively stable. Minor adjustments made to Novolog armand pastrana this morning for better control throughout the day. * Pharmacy will continue to follow during admission and adjust regimen as indicated. 06/20: * Jerry received 40 units of insulin yesterday, 25 basal + 15 bolus. BSGs were: [phone] mg/dL. * Fasting continues to trend down, 95 mg/dL this AM. Will reduce basal by 40%. No change to bolus regimen. * Remains on Ceftriaxone for infection. 06/19: * 58 y/o M admitted two days ago R foot Osteomyelitis due to diabetic foot wound. He underwent R below knee amputation on 06/17. * History of non-compliance on anti-diabetic meds. Current HbA1c = 14.1%. * Pharmacy consulted for glycemic management yesterday. * BSGs yesterday were elevated above 200 mg/dl all day. Basal 15 units of insulin given at dinner time based on stress between 2 and 3. Novolog initiated also at the same stress level. * Fasting BSG today was 151 mg/dl. Basal insulin 20 units (stress of 3) given this morning. Basal dose scale at HS based on BSG. * Novolog parameters tightened to stress of 3. PLAN FOR INPATIENT GLYCEMIC CONTROL: * Basal insulin * Lantus 15 units SC daily * Bolus insulin * NovoLog per scale ACHS or Q6hrs while NPO * Goal Range: Low 110 mg/dL - High 140 mg/dL * Correction Factor: 30 mg/dL/unit * Nutritional / Prandial insulin per carb ratio of 1 unit per 11 grams CHO consumed
[2023-07-01] MEDS: LANTUS PER UNIT CHARGE SC SCH (08:30)
--- NOTE | 2023-07-01 09:36 | Pharmacy Report ---
Pharmacy Glycemic Short Note 2 - Date of Service July 01, 2023 - Glycemic Short BSG Results (Last 24 hours): 06/30/23 06/30/23 06/30/23 11:36 16:37 21:12 POC Glucose 158 H 132 H 181 H 07/01/23 07:48 POC Glucose 159 H OUTPATIENT ANTIDIABETIC REGIMEN: * None * HbA1c: 14.1% (06/17/23) ASSESSMENT: 06/30 * Stressors stable * AM fasting BSG slightly above goal. Lantus increased slightly. * Post-prandial BSG's were reasonable yesterday. No change to Novolog. 06/29: * BSGs yesterday were [phone] mg/dl. Patient received 18 units basal and 17 units bolus insulin. * Since pre-lunch BSG was lower yesterday, basal insulin was reduced to 12 units today. However, since fasting BSG trended up to 149 mg/dl, basal insulin increased to 15 units for tomorrow AM. * Novolog carb ratio was loosened with dinner yesterday. Continued this today. 06/26: * Jerry received 40 units of SQ insulin yesterday with good glycemic control: 128, 162, 122, 118 mg/dL. * Fasting BSG is trending upward. Will increase basal insulin slightly. * Post prandial values are acceptable. No changes to Novolog. 06/24: * Pts BSGs remain relatively stable. Minor adjustments made to Novolog parameters this morning for better control throughout the day. * Pharmacy will continue to follow during admission and adjust regimen as indicated. 06/20: * Jerry received 40 units of insulin yesterday, 25 basal + 15 bolus. BSGs were: [phone] mg/dL. * Fasting continues to trend down, 95 mg/dL this AM. Will reduce basal by 40%. No change to bolus regimen. * Remains on Ceftriaxone for infection. 06/19: * 58 y/o M admitted two days ago R foot Osteomyelitis due to diabetic foot wound. He underwent R below knee amputation on 06/17. * History of non-compliance on anti-diabetic meds. Current HbA1c = 14.1%. * Pharmacy consulted for glycemic management yesterday. * BSGs yesterday were elevated above 200 mg/dl all day. Basal 15 units of insulin given at dinner time based on stress between 2 and 3. Novolog initiated also at the same stress level. * Fasting BSG today was 151 mg/dl. Basal insulin 20 units (stress of 3) given this morning. Basal dose scale at HS based on BSG. * Novolog parameters tightened to stress of 3. PLAN FOR INPATIENT GLYCEMIC CONTROL: * Basal insulin * Lantus 15 units SC daily * Bolus insulin * NovoLog per scale ACHS or Q6hrs while NPO * Goal Range: Low 110 mg/dL - High 140 mg/dL * Correction Factor: 30 mg/dL/unit * Nutritional / Prandial insulin per carb ratio of 1 unit per 11 grams CHO consumed
--- NOTE | 2023-07-01 16:01 | Hospitalist Progress Note ---
Date of Service July 01, 2023 Assessment & Plan (1) Acute osteomyelitis of right foot: (2) Diabetes mellitus with hyperglycemia: Plan 58-year-old male with past med history significant for diabetes used to be on metformin but stopped taking it 2 years ago and not seen a doctor for some time went to [place] ER because of infection going on the right big toe for last 2 months. He was initially in the [place] ED; was being planned to transfer to [facility]. Patient decided to come to [facility] for further evaluation Acute osteomyelitis of the right big toe Dry gangrene Diabetic foot wound Blood culture positive gram-positive cocci in chains Status post right below-knee amputation on 06/18/2023 Patient presented with worsening infection of right great toe for the last 2 months Blood culture in [place] ED positive for Streptococcus agalactiae(group B strep); sensitive to penicillin, vancomycin; resistance to clindamycin and tetracycline. Foot CT shows diffuse subcutaneous edema and swelling compatible cellulitis, osseous destruction involving the distal phalanx of first digit. Leukocytosis present IntraOp culture also growing group B streptococcus Initially on Zosyn and daptomycin; Infectious diseases evaled -ceftriaxone 2 g IV daily for total of 2 weeks from 06/17 [source control] through 07/01 06/15 blood culture positive for gram-Group B Streptococcus, repeat blood cx from 06/20- no growth till date Aspirin twice daily for DVT prophylaxis Patient reported maculopapular rash on his upper extremity, abdomen and lower extremity. Discussion was done with infectious disease(Dr. Shelley) on 06/26 regarding alternative choice; recommended daptomycin. Will continue daptomycin till June Type II diabetes Currently not taking medications sliding scale while inpatient HbA1c of 14.1% Discussed about restarting insulin at discharge; patient is agreeable. Plan to do once a day glargine 15 units; titrate upwards after that. Pharmacy to provide coupon so that patient can receive first month free. Will need follow-up with PCP and diabetic clinic to manage diabetes Hypertension: High BP while here, ECHO w/ mod concentric LVH. currently on nifedipine. Hyponatremia Sodium 127 on admission; improved to normal levels DVT prophylaxis aspirin twice daily Disposition: Medical floor, assiting w/ dispo. Full code Please note the above document was generated using voice recognition software. It may contain grammatical, syntax or spelling errors. Any formal questions or concerns about the content, text or information contained within the body of this dictation should be directly addressed to the provider for clarification Admission and Anticipated Discharge Date Admission Date: June 17, 2023 Subjective Patient seen and examined at bedside. Comfortable; not in distress. Denies fever, chills, chest pain, shortness of breath, abdominal pain or urinary symptoms. No significant overnight events Review of Systems Review of Systems: All systems reviewed & are unremarkable except as noted in Subjective Physical Exam Physical Exam: Constitutional: WD/WN, vitals as above, NAD, sitting up in bed, pleasant, conversing easily Respiratory: normal respiratory effort, lungs clear to auscultation, no wheeze, rales, rhonchi. Normal insp/exp effort, no accessory muscle use Cardiovascular: RRR, no murmur, no edema Vessels: no JVD or carotid bruit Chest: normal inspection of chest Abdomen: normal bowel sounds, soft, nontender, no hepatosplenomegaly Musculoskeletal: Bandage in place on right leg Skin: Maculopapular rash noted over, abdomen and legs Neurologic: PERRL, EOMI, accommodation nl, no face palsy, no dysarthria CN's II- XI intact bilaterally and moves all extremities Psychiatric: A+Ox3, euthymic affect Results & Data Results & Data Vital Signs (Past 12 Hours) Vital Signs Temp Pulse Resp BP Pulse Ox O2 Del Method 07/01/23 07:14 36.9 C 77 16 166/87 H 97 Room Air
--- NOTE | 2023-07-01 18:54 | XRay Report ---
XR femur RT 2V routine, XR tibia fibula RT 2V HISTORY: 58 years-old Male Fall, rule out Fracture acute right lower extremity pain status post fall COMPARISON: Right knee fluoroscopic images 06/18/2023 TECHNIQUE: 2 views of the right femur with 2 views of the right tibia and fibula FINDINGS: FEMUR: Mild osteoarthritis of the right hip. No acute fracture, dislocation or avascular necrosis. Unremarka ble soft tissues. TIBIA/FIBULA: Postoperative changes of [id number] amputation. Trace knee joint effusion. There is moderate soft tissue prominence of the amputation stump. No acute fracture, dislocation or definitive osseous eros ion. No opaque foreign body identified. IMPRESSION: 1. No acute fracture or dislocation. 2. Prior below the knee amputation with soft tissue prominence of the amputation stump. ACT 112: Negative or not required by law. The above report was generated using voice recognition software. It may contain grammatical, syntax o r spelling errors. Electronically signed by: Ranjeet Epperson M.D. 07/01/2023 6:52 PM
--- NOTE | 2023-07-01 18:54 | XRay Report ---
XR femur RT 2V routine, XR tibia fibula RT 2V HISTORY: 58 years-old Male Fall, rule out Fracture acute right lower extremity pain status post fall COMPARISON: Right knee fluoroscopic images 06/18/2023 TECHNIQUE: 2 views of the right femur with 2 views of the right tibia and fibula FINDINGS: FEMUR: Mild osteoarthritis of the right hip. No acute fracture, dislocation or avascular necrosis. Unremarka ble soft tissues. TIBIA/FIBULA: Postoperative changes of [id number] amputation. Trace knee joint effusion. There is moderate soft tissue prominence of the amputation stump. No acute fracture, dislocation or definitive osseous eros ion. No opaque foreign body identified. IMPRESSION: 1. No acute fracture or dislocation. 2. Prior below the knee amputation with soft tissue prominence of the amputation stump. ACT 112: Negative or not required by law. The above report was generated using voice recognition software. It may contain grammatical, syntax o r spelling errors. Electronically signed by: Ranjeet Epperson M.D. 07/01/2023 6:52 PM
--- NOTE | 2023-07-02 10:15 | Orthopedic Progress Note ---
Date of Service July 02, 2023 Assessment & Plan (1) Below-knee amputation of right lower extremity: Plan: POD14 - S/p Right below knee amputation - May be out of bed as tolerated with assistance of a walker. - Ice PRN pain/swelling - Dressing change on right leg today, new compression wrap applied - Encourage blood sugar control - Elevation on 1-2 pillows at all times when at rest to limit edema - Allowed for full ROM right knee and hip - Eliquis for DVT prophylaxis. Continue for another 7-[address] Marquis - Dr. Marquis present for today's visit - Okay from ortho standpoint for discharge today, will re-eval in 3 days for outpatient dressing change. - Discharge instructions reviewed. All questions answered. Admission and Anticipated Discharge Date Admission Date: June 17, 2023 Subjective Patient resting in bed, s/p fall onto right stump yesterday. States that he lost his balance from getting his walker too far in front of him. Mild soreness today, states he feels like "he got hit by a truck". He reports some bloody drainage from his right lower extremity. Has been able to move his leg. He's been elevating right lower extremity. Physical Exam Musculoskeletal: Exam of right lower extremity: Incision clean, dry and intact. Mild dried bloody drainage on dressings from central aspect of incision, no active bleeding, mild edema of right lower extremity stump. No ecchymosis, no erythema except mild erythema along incision. Sutures retained and intact. Hemovac site with mild serous drainage, nothing active. Mild tenderness with palpation of stump, but no underlying fluctuance or hematoma. Full right knee and hip ROM. Strength RLE 5/5. Cap refill brisk. Extensor mechanism intact. Results & Data Vital Signs (Past 12 Hours) Vital Signs Temp Pulse Resp BP Pulse Ox O2 Del Method 07/02/23 08:08 36.7 C 72 18 156/81 H 98 Room Air Diagnostic Findings XR femur RT 2V routine, XR tibia fibula RT 2V HISTORY: 58 years-old Male Fall, rule out Fracture acute right lower extremity pain status post fall COMPARISON: Right knee fluoroscopic images 06/18/2023 TECHNIQUE: 2 views of the right femur with 2 views of the right tibia and fibula FINDINGS: FEMUR: Mild osteoarthritis of the right hip. No acute fracture, dislocation or avascular necrosis. Unremarkable soft tissues. TIBIA/FIBULA: Postoperative changes of [id number] amputation. Trace knee joint effusion. There is moderate soft tissue prominence of the amputation stump. No acute fracture, dislocation or definitive osseous erosion. No opaque foreign body identified. IMPRESSION: 1. No acute fracture or dislocation. 2. Prior below the knee amputation with soft tissue prominence of the amputation stump.
--- NOTE | 2023-07-02 14:03 | Discharge Summary ---
Date of Service July 02, 2023 Admission HPI Per Admitting Provider 58-year-old male with past med history significant for diabetes used to be on metformin but stopped taking it 2 years ago and not seen a doctor for some time went to [facility] because of infection going on the right big toe for last 2 months. Says it initially started as a blister and he used [id number] antibiotic creams but is not getting better so went to the [facility] and was there for 24 hours. Looks like he was given IV antibiotics and there was a plan [facility] he came here. Says he has neuropathy in legs and does not feel any pain. Is ambulating okay. Denies any fevers. Denies any headache. No dizziness. No runny nose or sore throat. Vision is okay. No cough. States appetite is okay. No chest pain or shortness of breath. No nausea. No abdominal pain. Normal bowel and bladder movements. Denies blood in the stools. Hemodynamically stable. Past medical history. As mentioned above Past surgical history. Surgery for a bursitis in his right elbow. Social history. Denies smoking. Alcohol social drinking. No drug use. Family history. Father had diabetes and heart disease. Mother had diabetes. Admission Exam Per Admitting Provider General- Not in distress Head- atraumatic Eyes- PERRL,. ENT- oropharynx clear Neck- supple, no JVD. Lungs- clear to auscultation no wheezing or crackles. Heart- regular rhythm; no murmur, no gallop. Abdomen- normal bowel sounds, soft, nontender, no distension. 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 Normal insp/exp effort, no accessory muscle use Cardiovascular: RRR, no murmur, no edema Vessels: no JVD or carotid bruit Chest: normal inspection of chest Abdomen: normal bowel sounds, soft, nontender, no hepatosplenomegaly Musculoskeletal: Bandage in place on right leg Skin: Maculopapular rash noted over, abdomen and legs Neurologic: PERRL, EOMI, accommodation nl, no face palsy, no dysarthria CN's II-XI intact bilaterally and moves all extremities Psychiatric: A+Ox3, euthymic affect Discharge Data Allergies Allergy/AdvReac Type Severity Reaction Status Date / Time metformin AdvReac Mild Confusion Verified 06/17/23 16:33 Consultations 06/17/23 00:03 ED Decision to Admit Stat 06/17/23 07:44 Consult Orthopedic Surgery Routine 06/20/23 07:42 Consult Infectious Diseases Routine Procedures Performed Operation Date: 06/18/23 13:40 Actual Procedures p Right Below Knee Amputation(Right) - Inocente Marquis MD Ordered Studies 06/16/23 23:11 CT foot RT w con Stat 06/17/23 US venous doppler LE RT Stat 06/18/23 13:40 FL knee RT 1 or 2V Routine Diabetes Follow up Diabetes Follow-up Needed for HgbA1c >9% Hospital Course (1) Acute osteomyelitis of right foot: (2) Diabetes mellitus with hyperglycemia: Plan Acute osteomyelitis of the right big toe Dry gangrene Diabetic foot wound Blood culture positive gram-positive cocci in chains Status post right below-knee amputation on 06/18/2023 Patient presented with worsening infection of right great toe for the last 2 months Blood culture in [facility] positive for Streptococcus agalactiae(group B strep); sensitive to penicillin, vancomycin; resistance to clindamycin and tetracycline. Foot CT shows diffuse subcutaneous edema and swelling compatible cellulitis, osseous destruction involving the distal phalanx of first digit. Leukocytosis present IntraOp culture also growing group B streptococcus 06/15 blood culture positive for gram-Group B Streptococcus, repeat blood cx from 06/20- no growth till date Patient was placed on ceftriaxone initially for the bacteremia as recommended by infectious disease consultation for total of 2 weeks. Patient reported maculopapular rash on his extremities and abdomen. Discussion was done with infectious disease(Dr. Shelley) on 06/26 regarding alternative choice; recommended daptomycin. Patient finished course on July 02, 2023 Patient discharged home with instruction to follow-up with orthopedics and primary care doctor Type II diabetes Currently not taking medications sliding scale while inpatient HbA1c of 14.1% Discussed about restarting insulin at discharge; patient is agreeable. Patient discharged home with instruction to follow-up with orthopedics and primary care doctor Pharmacy to provide coupon so that patient can receive first month free. Will need follow-up with PCP and diabetic clinic to manage diabetes Hypertension: High BP while here, started nifedipine 90 mg once a day Please note the above document was generated using voice recognition software. It may contain grammatical, syntax or spelling errors. Any formal questions or concerns about the content, text or information contained within the body of this dictation should be directly addressed to the provider for clarification Total Time Total Time Spent Total Time Spent (In Minutes): 45 Total Time Includes: Examination of the Patient, Discharge Planning, Medication Reconciliation, Communication With Other Providers and Other Discharge Plan Discharge Items Patient Disposition: Home - Self-Care Reason For Visit: RT BIG TOE INFECTION, OSTEOMYELITIS Discharge Diagnosis: Acute osteomyelitis of the right big toe Dry gangrene Diabetic foot wound Blood culture positive gram-positive cocci in chains Status post right below-knee amputation on 06/18/2023 Condition on Discharge: Fair Activity: Resume your previous activity Non-emergency contact: Primary Care Provider Call non-emergency contact if: you have any medication questions and your symptoms worsen Follow-up/Referrals: Manasa Guillory PA-C [Physician [employer]] - 07/05/23 3:30 pm Inocente Marquis MD [Surgeon] - 07/10/23 3:30 pm Ludwig Interiano MD [Outside Practitioners] - (Date & Time 07/08/2023 3:20 PM Provider Ludwig Interiano MD Department Family [facility] ) Diet: Regular Addtl Attending Provider Instructions: You were admitted to the hospital due to infection of right leg wound. You were treated with amputation and IV antibiotic during the hospitalization. You are found to have type 2 diabetes mellitus. You are prescribed Tresiba 15 units (long unit insulin) once a day. By using [facility] Immediate Supply Insulin Card and you will be able to get once month supply for $0. Obtain pen needle (4mm x 32 gauge) thru [employer] You are prescribed nifedipine 90 mg once a day for high blood pressure Addtl Mail Caller Provider Instructions: Orthopedic Instructions: - May be out of bed as tolerated with assistance of a walker. - Ice PRN pain/swelling - Dressing change on right leg today, new compression wrap applied - Encourage blood sugar control - Elevation on 1-2 pillows at all times when at rest to limit edema - Allowed for full ROM right knee and hip - Aspirin 81mg twice daily for DVT prophylaxis. Continue for another 7-[address] Marquis. Pending Studies at Discharge: No Stand-Alone Forms: [facility], Sm[facility] Cess[facility] Medications and DC Order Prescriptions: New diphenhydramine HCl [Benadryl] 25 mg capsule 25 mg PO Q8H PRN (Reason: itching) Qty: 30 0RF nifedipine 90 mg tablet extended release 24hr 90 mg PO DAILY Qty: 30 0RF insulin degludec [Tresiba FlexTouch U-100] 100 unit/mL (3 mL) insulin pen 15 unit subcut DAILY Qty: 15 0RF aspirin 81 mg Tablet,Delayed Release (Dr/Ec) 81 mg PO BID Qty: 30 0RF Continued cyanocobalamin (vitamin B-12) [Vitamin B-12] 500 mcg Tablet 500 mcg PO DAILY cholecalciferol (vitamin D3) [Vitamin D3] 25 mcg (1,000 unit) Capsule 25 mcg PO DAILY Multivitamin 50 Plus Tablet 1 tab PO DAILY Discharge Orders: Discharge Order (Routine); Ordered 07/02/23 Ordered By: Erik Calloway Admission Data Admit Date/Time: 06/17/23 03:52 Attending Provider: Erik Calloway Admit Provider: Jose Sanchez Primary Care Provider: PCP,NO Other Providers: Jose Sanchez; Inocente Marquis Carlos M.; Tyra Machado; Greyson Tam I.; Javier Erickson II; Delisa Carver; Trevor Crum; Damion Shelley; Amish Roman; Dontrell Agosto; Jerry Langley; Renzo Alegre
== END 2023-07-02 15:03 | disposition home or self-care (01) | DRG 240 ==
LOC: ED 21:41 → 3N 06-17 03:52 → SUATTDRO 06-17 03:52 → 3N 06-17 04:31